=== PATIENT | male | born 1970 | race Caucasian/White ===

== ENCOUNTER → 2017-08-08 | Outpatient (CLI) | payer BC ==
[~2017-08-08] MED LIST: IBUP-103 PO
[2017-08-08 12:25] LABS: BASO % 0.5 %; BASO ABS # 0.03 K/uL (0-0.2); COMPLETE YES; EOS % 3.6 %; HEMATOCRIT 44.7 % (42-52); IG% 0.2 %; LYMPH % 28.9 %; LYMPH ABS # 1.76 K/uL (1.2-3.4); MEAN CELL VOLUME 92.9 fL (80-100); MEAN CORPUSCULAR HEMOGLOBIN 32.2 pg (25-34); MEAN CORPUSCULAR HGB CONC 34.7 g/dl (32-36); MEAN PLATELET VOLUME 10.7 fL (7.4-10.4); MONO % 8.2 %; NEUT % 58.6 %; PLATELET COUNT 176 K/uL (130-400); RED BLOOD COUNT 4.81 M/uL (4.7-6.1)
[2017-08-08 12:54] LABS: ESTIMATED AVERAGE GLUCOSE 120 mg/dl; HA1C FLAG Normal (Normal)
[2017-08-08 13:11] LABS: LYME DISEASE AB IGG NEG (NEG); LYME DISEASE AB IGM NEG (NEG)
[2017-08-08 13:37] LABS: ALT/SGPT 30 U/L (12-78); AST/SGOT 17 U/L (15-37); BLOOD UREA NITROGEN 13 mg/dl (7-18); BUN/CREATININE RATIO 15.4 (10-20); CALCIUM 8.7 mg/dl (8.5-10.1); CARBON DIOXIDE 25 mmol/L (21-32); CHLORIDE 108 mmol/L (98-107); CREATININE 0.86 mg/dl (0.60-1.40); GLUCOSE 94 mg/dl (70-99); SODIUM 138 mmol/L (136-145)
[2017-08-08 13:39] LABS: ALKALINE PHOSPHATASE 93 U/L (45-117); CHOLESTEROL 196 mg/dl (0-200); CHOLESTEROL/HDL RATIO 4.4; HDL CHOLESTEROL 45 mg/dl; LDL CHOLESTEROL CALCULATED 128 mg/dl; RHEUMATOID FACTOR < 10.0 U/mL (0-15); TRIGLYCERIDES 113 mg/dl (0-150); VERY LOW DENSITY LIPOPROT CALC 23 mg/dl
[2017-08-08 13:50] LABS: C-REACTIVE PROTEIN < 0.29 mg/dl (0-0.29); FERRITIN 120.7 ng/ml (8.0-388.0); MAGNESIUM 2.4 mg/dl (1.8-2.4); THYROID STIMULATING HORMONE 0.934 uIu/ml (0.300-4.500); URIC ACID 5.6 mg/dl (2.6-7.2)
[2017-08-08 14:16] LABS: CREATININE RANDOM URINE 81.9 mg/dl
== END | disposition home or self-care (01) ==
LOC: C.LABPBG 09:01
PROVIDERS: ATTEND Nurse Practitioner Family
DX: Z13.220 Encounter for screening for lipoid disorders (principal); M85.80 Other specified disorders of bone density and structure, unspecified site; Z13.1 Encounter for screening for diabetes mellitus

== ENCOUNTER 2019-07-19 20:46 | Inpatient (IN) ==
--- NOTE | 2019-07-19 21:30 | XRay Report ---
XR chest 1V portable HISTORY: Atypical chest pain, cough COMPARISON: Chest 08/12/2014. FINDINGS: The lungs are clear. Cardiac silhouette is normal in size. No pleural effusions. No pneumot horax. IMPRESSION: No acute process. Electronically signed by: Freddy Alvarez M.D. 07/19/2019 9:29 PM
--- NOTE | 2019-07-19 21:30 | XRay Report ---
XR knee LT 3V CLINICAL HISTORY: left knee swelling COMPARISON STUDY: Left knee 08/12/2014. FINDINGS: There is a left total knee arthroplasty. The hardware is intact. No abnormal periprosthetic lucency. No fracture or dislocation. Small left knee effusion. IMPRESSION: 1. Small left knee effusion. 2. No fractures. 3. Left total knee arthroplasty. The hardware appears intact. Electronically signed by: Freddy Alvarez M.D. 07/19/2019 9:28 PM
[2019-07-19 21:37] LABS: Basophils # (auto) 0.02 K/uL (0-0.2); Basophils % (auto) 0.3 %; Eosinophils # (auto) 0.26 K/uL (0-0.5); Eosinophils % (auto) 3.9 %; Hematocrit (blood only) 39.8 % (42-52); Hemoglobin 13.7 g/dL (14.0-18.0); Immature Granulocytes # (auto) 0.01 K/uL (0.00-0.02); Immature Granulocytes % (auto) 0.1 %; Lymphocytes # (auto) 1.71 K/uL (1.2-3.4); Lymphocytes % (auto) 25.4 %; Mean Corpuscular Hgb Conc 34.4 g/dL (32-36); Monocytes # (auto) 1.09 K/uL (0.11-0.59); Monocytes % (auto) 16.2 %; Neutrophils # (auto) 3.65 K/uL (1.4-6.5); Neutrophils % (auto) 54.1 %; Platelet Count 125 K/uL (130-400); RDW Coefficient of Variation 13.2 % (11.5-14.5); Red Blood Count 4.28 M/uL (4.7-6.1); White Blood Count 6.74 K/uL (4.8-10.8)
[2019-07-19 21:52] LABS: Partial Thromboplastin Ratio 0.9; Partial Thromboplastin Time 25.5 Seconds (21.0-31.0); Prothrombin Time 9.9 Seconds (9.0-12.0)
[2019-07-19 21:55] LABS: Alanine Aminotransferase 37 U/L (12-78); Aspartate Aminotransferase 24 U/L (15-37); BUN Creatinine Ratio 17.6 (10-20); Blood Urea Nitrogen 16 mg/dl (7-18); Calcium 8.8 mg/dl (8.5-10.1); Carbon Dioxide 24 mmol/L (21-32); Chloride 106 mmol/L (98-107); Creatinine Clr Calc Pharmacy 123.6 ml/min; Est GFR (African American) 116.1; Est GFR (Non-African American) 100.2; Glucose 91 mg/dl (70-99); Potassium 3.5 mmol/L (3.5-5.1); Sodium 139 mmol/L (136-145)
[2019-07-19 21:58] LABS: Albumin Globulin Ratio 1.1 (0.9-2); Alkaline Phosphatase 89 U/L (45-117); Bilirubin,Total 0.3 mg/dl (0.2-1); Globulin 3.6 gm/dl (2.5-4.0); Total Protein 7.6 gm/dl (6.4-8.2)
--- NOTE | 2019-07-19 22:36 | Ultrasound Report ---
LEFT LOWER EXTREMITY VENOUS DOPPLER HISTORY: Left leg swelling. COMPARISON STUDY: Venous Doppler 08/12/2014. FINDINGS: Occlusive DVT within the mid to distal superficial femoral vein and popliteal vein. There i s also thrombus in one of 2 posterior tibial veins and peroneal veins. The left common femoral vein i s patent. The left anterior tibial veins are also patent. IMPRESSION: Positive DVT within the left lower extremity as described above. Electronically signed by: Freddy Alvarez M.D. 07/19/2019 10:35 PM
[2019-07-19] MEDS ORDERED: OPTIRAY 320 125ml IV PRN (23:10)
[2019-07-19] MEDS ORDERED: HEPARIN SOD 5,000 UNIT/0.5 ML VIAL ONE (23:46)
[2019-07-19] MEDS: HEPARIN SODIUM/DEXTROSE 25,000 UNITS/500 ML BAG IV SCH (23:47)
[2019-07-20 00:30] LABS: Troponin I < 0.015 ng/ml (0-0.045)
--- NOTE | 2019-07-20 00:30 | Emergency Department Note ---
Entered by Nithya Medina acting as a scribe for Greg Warren MD ED Provider Note CHIEF COMPLAINT: left knee injury HISTORY OF PRESENT ILLNESS: The patient is a 48 year old male who presents to the Emergency Room with complaints of left knee pain and swelling in his left leg beginning nine hours ago. The patient states he was working this afternoon when he heard a pop in his left knee. The patient reports a history of a total left knee replacement 5 to 6 years ago. He notes blood clots and leg swelling after the surgery. He denies any blood thinners. The patient also states he was in a car for two hours two days ago traveling to [place]. The patient also reports flu-like symptoms, coughing, and diarrhea beginning yesterday. He notes chest pain and lightheadedness. He states he has been taking Robitussin for his cough. The patient reports a history of sleep apnea. Pt denies LOC, headache, fevers, chills, diaphoresis, visual changes, neck pain, breathing difficulties, nausea, vomiting, abdominal pain, back pain, melena, hematochezia, urinary symptoms, numbness, weakness, lymphadenopathy, rash, or other complaints. REVIEW OF SYSTEMS: See HPI for pertinent positives and negatives. A total of ten systems were reviewed and were otherwise negative. PMHx/PSHx: total knee arthroplasty, sleep apnea, hyperlipidemia SOCIAL HISTORY: Patient lives at home. PHYSICAL EXAM: GENERAL: Awake, alert, well-appearing, in no distress HENT: Normocephalic, atraumatic. Oropharynx unremarkable. EYES: PERRL. Normal conjunctiva. Sclera non-icteric. NECK: Inspection normal. Non-tender. Supple. No nuchal rigidity. FROM. No masses. RESPIRATORY: Clear to auscultation. No wheezes. No rales. Normal respiratory effort. CARDIAC: Normal rate. Normal rhythm. No murmurs. No rubs. Extremities warm and well perfused. Pulses equal. No JVD. GI: Soft, non-distended. No tenderness to palpation. No rebound or guarding. No masses. RECTAL: Deferred. MUSCULOSKELETAL: Atraumatic. Chest examination reveals no tenderness. The back is symmetrical on inspection without obvious abnormality. There is no CVA tenderness to palpation. No joint edema. LOWER EXTREMITIES: Left leg larger in size than right leg. Mild posterior thigh tenderness. Negative Homans' sign. No discoloration. NEURO: Normal sensorium. No sensory or motor deficits noted. SKIN: No rash or jaundice noted. EMERGENCY DEPARTMENT COURSE: 2100: Past medical records reviewed. The patient was evaluated in room D05, and a complete history and physical examination were performed. 2305: Upon reevaluation, the patient was resting comfortably. I updated the patient on findings and results. Patient was taken for a CT. 2345: Upon reevaluation, I discussed findings and results with the patient. He verbalized agreement of the treatment plan. I spoke with Dr. Alva of the [facility] Hospitalist Service. The patient will be evaluated for further management and care. MEDICAL DECISION MAKING: A3 Triage Nursing notes reviewed and agree them. Additional history obtained from the family. The patient's history was concerning for swelling and pain in the leg. Differential diagnosis: Etiologies such as DVT, joint effusion, infection, trauma, muscular, lymphedema, idiopathic, CHF, as well as others were entertained.. Physical examination: The physical examination revealed no signs of infection. Neurovascularly intact. ER treatment provided: Monitoring IV heparin on reassessment the patient felt better. Diagnostics interpreted by me: The labs revealed an unremarkable CBC and chemistry panel. Coags negative. Imaging studies: Ultrasound imaging of the left leg reveals an occlusive DVT. CT PE study was performed and showed bilateral pulmonary emboli. The patient has bilateral pulmonary emboli. He has an occlusive DVT. He was started on IV heparin. He will need to be admitted to the hospital for further management. Consultation: A consultation was placed with the hospitalist. The case was discussed and diagnostics were reviewed. The patient was evaluated in the ER for further treatment. IMPRESSION: Bilateral pulmonary embolism, occlusive left lower extremity DVT CRITICAL CARE: I have personally spent 30 minutes of critical care time in the direct management of this patient. This includes bedside care, interpretation of diagnostic studies, and testing, discussion with consultants, patient, and family members, and other required patient management activities. This 30 minutes is in excess of all separately billable procedures. PLAN: Further evaluation by hospitalist. The scribe's documentation has been prepared under my direction and personally reviewed by me in its entirety. I confirm that the note above accurately reflects all work, treatment, procedures, and medical decision making performed by me. Impression & Plan Bilateral pulmonary embolism, Deep vein thrombosis (DVT) of left lower extremity Past Med/Surg History Family History Mother No problems noted. 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 Feels Safe at Home: Yes Smoking Status: Current every day smoker Tobacco Type: cigarettes ; Age Started Using Tobacco: 35 ; packs per day: 0.5 ; Hx Alcohol Use: Yes Alcohol Intake Frequency: Rarely Hx Substance Use: No Childhood Exposure to Second-Hand Smoke: Yes Dental Care, Regularly: No Physical Activity Frequency: Does not Exercise Seatbelt Use: always Sunscreen Use: Yes Results & Data Vital Signs Vital Signs - 24 hr 07/19/19 20:47 07/19/19 22:46 07/19/19 23:17 Temperature 36.8 C Temperature Source Oral Sepsis Recent Fever Within 48 Hours No Sepsis Action Taken by Nursing No Action Required Pulse Rate 76 Pulse Rate [Left Finger] 69 66 Pulse Rhythm [Left Finger] Pulse Strength [Left Finger] Respiratory Rate 20 18 18 Respiratory Effort / Characteristics Non-Labored Spontaneous Respiratory Depth Normal Blood Pressure 173/88 H Blood Pressure [Right Arm] 121/64 132/61 Blood Pressure Mean 116 Blood Pressure Mean [Right Arm] 83 84 Blood Pressure Position [Right Arm] Sitting Sitting Pulse Oximetry 96 94 96 Oxygen Delivery Method Room Air Room Air Room Air 07/20/19 00:10 Temperature Temperature Source Sepsis Recent Fever Within 48 Hours Sepsis Action Taken by Nursing Pulse Rate Pulse Rate [Left Finger] 65 Pulse Rhythm [Left Finger] Regular Pulse Strength [Left Finger] Normal Respiratory Rate 16 Respiratory Effort / Characteristics Non-Labored Spontaneous Respiratory Depth Normal Blood Pressure Blood Pressure [Right Arm] 132/61 Blood Pressure Mean Blood Pressure Mean [Right Arm] 84 Blood Pressure Position [Right Arm] Pulse Oximetry 96 Oxygen Delivery Method Room Air Home Medications Current Medication List: was personally reviewed by me Laboratory Data Attestation: I reviewed the patient's lab results. Result diagrams: 07/19/19 21:25 07/19/19 21:25 Lab Results 07/19/19 07/19/19 07/19/19 Range/Units 21:25 21:25 21:25 WBC 6.74 (4.8-10.8) K/uL RBC 4.28 L (4.7-6.1) M/uL Hgb 13.7 L (14.0-18.0) g/dL Hct 39.8 L (42-52) % MCV 93.0 (80-100) fL MCH 32.0 (25-34) pg MCHC 34.4 (32-36) g/dL RDW Std Deviation 45.0 (36.4-46.3) fL RDW Coeff of Ellyn 13.2 (11.5-14.5) % Plt Count 125 L (130-400) K/uL MPV 10.0 (7.4-10.4) fL Immature Gran % (Auto) 0.1 % Neut % (Auto) 54.1 % Lymph % (Auto) 25.4 % Miner % (Auto) 16.2 % Eos % (Auto) 3.9 % Baso % (Auto) 0.3 % Immature Gran # (Auto) 0.01 (0.00-0.02) K/uL Neut # (Auto) 3.65 (1.4-6.5) K/uL Lymph # (Auto) 1.71 (1.2-3.4) K/uL Miner # (Auto) 1.09 H (0.11-0.59) K/uL Eos # (Auto) 0.26 (0-0.5) K/uL Baso # (Auto) 0.02 (0-0.2) K/uL PT 9.9 (9.0-12.0) Seconds INR 1.0 (0.9-1.1) APTT 25.5 (21.0-31.0) Seconds PTT Ratio 0.9 Sodium 139 (136-145) mmol/L Potassium 3.5 (3.5-5.1) mmol/L Chloride 106 (98-107) mmol/L Carbon Dioxide 24 (21-32) mmol/L Anion Gap 9.0 (3-11) BUN 16 (7-18) mg/dl Creatinine 0.88 (0.6-1.4) mg/dl Est Cr Clr Drug Dosing 123.6 ml/min Est GFR ( Amer) 116.1 Est GFR (Non-Af Amer) 100.2 BUN/Creatinine Ratio 17.6 (10-20) Glucose 91 (70-99) mg/dl Calcium 8.8 (8.5-10.1) mg/dl Total Bilirubin 0.3 (0.2-1) mg/dl AST 24 (15-37) U/L ALT 37 (12-78) U/L Alkaline Phosphatase 89 (45-117) U/L Total Protein 7.6 (6.4-8.2) gm/dl Albumin 4.0 (3.4-5.0) gm/dl Globulin 3.6 (2.5-4.0) gm/dl Albumin/Globulin Ratio 1.1 (0.9-2) Administered Medications Heparin Sodium/Dextrose (Heparin Sodium/Dextrose) 25,000 units in 500 mls @ 0.02 mls/hr IV .Q24H [facility]; Protocol Stop: 08/18/19 23:44 Last Admin: 07/19/19 23:47 Dose: 1,550 units/hr, 31 mls/hr Documented by: [id number] Cosigned by: [id number] Ioversol (Optiray 320 125ml) 119 ml IV ONCE PRN PRN Reason: Interaction Checking Stop: 07/23/19 23:09 Last Admin: 07/19/19 23:10 Dose: 119 ml Documented by: [id number] Discontinued Medications Heparin Sodium (Porcine) (Heparin Sodium (Porcine)) Confirm Administered Dose 5,000 units .ROUTE .K-MED ONE Stop: 07/19/19 23:47 Last Admin: 07/19/19 23:47 Dose: 5,000 units Documented by: [id number] Cosigned by: [id number] Heparin Sodium/Dextrose () 1 ea N/A NOW STA; Protocol Stop: 07/19/19 23:43 Last Admin: 07/19/19 23:48 Dose: 1 ea Documented by: [id number] Imaging Data Radiologist's Impression: Radiology results as stated below per my review and the radiologist's interpretation: LEFT LOWER EXTREMITY VENOUS DOPPLER HISTORY: Left leg swelling. COMPARISON STUDY: Venous Doppler 08/12/2014. FINDINGS: Occlusive DVT within the mid to distal superficial femoral vein and popliteal vein. There is also thrombus in one of 2 posterior tibial veins and peroneal veins. The left common femoral vein is patent. The left anterior tibial veins are also patent. IMPRESSION: Positive DVT within the left lower extremity as described above. Electronically signed by: Freddy Alvarez M.D. 07/19/2019 10:35 PM XR knee LT 3V CLINICAL HISTORY: left knee swelling COMPARISON STUDY: Left knee 08/12/2014. FINDINGS: There is a left total knee arthroplasty. The hardware is intact. No abnormal periprosthetic lucency. No fracture or dislocation. Small left knee effusion. IMPRESSION: 1. Small left knee effusion. 2. No fractures. 3. Left total knee arthroplasty. The hardware appears intact. Electronically signed by: Freddy Alvarez M.D. 07/19/2019 9:28 PM XR chest 1V portable HISTORY: Atypical chest pain, cough COMPARISON: Chest 08/12/2014. FINDINGS: The lungs are clear. Cardiac silhouette is normal in size. No pleural effusions. No pneumothorax. IMPRESSION: No acute process. Electronically signed by: Freddy Alvarez M.D. 07/19/2019 9:29 PM [facility]: CT angio chest PE protocol Urgent: bilateral pulmonary emboli Blood Pressure Blood Pressure Findings: Elevated blood pressure Blood Pressure Disposition: further management by hospitalist Discharge Plan Visit Data Chief Complaint: Knee Injury/Pain Stated Complaint: L KNEE POPPED; HOT TO TOUCH ED Provider: Greg Warren Discharge Problem: Bilateral pulmonary embolism, Deep vein thrombosis (DVT) of left lower extr emity Patient Disposition: Being Evaluated by Hospitalist Forms Stand Alone Forms: My [facility] Prescriptions Prescriptions: No Action atorvastatin 10 mg tablet 10 mg PO QPM Qty: 90 RF: 0 diclofenac sodium 75 mg tablet,delayed release (DR/EC) 75 mg PO BID Qty: 60 RF: 0 cetirizine 10 mg tablet 10 mg PO DAILY Qty: 90 RF: 0 fluticasone propionate 50 mcg/actuation spray,suspension 2 sprays intranasal DAILY Qty: 9.9 RF: 3 ergocalciferol (vitamin D2) 50,000 unit capsule 50,000 unit PO WK RF: 0 Referrals Referrals: Corine Moss MD [Primary Care Provider] - Discharge Problem: Deep vein thrombosis (DVT) of left lower extremity Qualifiers: Affected thrombotic vein of extremity: unspecified vein of extremity Chronicity: unspecified Qualified Code(s): I82.402 - Acute embolism and thrombosis of unspecified deep veins of left lower extremity The scribe's documentation has been prepared under my direction and personally reviewed by me in its entirety. I confirm that the note above accurately reflects all work, treatment, procedures, and medical decision making performed by me.
--- NOTE | 2019-07-20 00:51 | History & Physical Report ---
Date of Service July 20, 2019 Assessment & Plan (1) Bilateral pulmonary embolism: 48-year-old male with history of provoked DVT (2013, completed 3 months anticoagulation), here with recurrent DVT of the left lower extremity and bilateral pulmonary emboli. Pt's father had h/o clots. 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 Tobacco abuse. Assessment: Small bilateral pulmonary emboli, recurrent DVT of the lower extremity. -Hemodynamically stable, not hypoxic Plan: -Admit to med telemetry -Continue heparin drip with plan to begin oral medication in a.m., pending case management review of DOAC vs warfarin --given nature of recurrence, did discuss patient will need lifelong anticoagulation. -Home NSAIDs discontinued, will need education regarding drug interactions. Tobacco use -Cessation discussed, patient declines NicoDerm patch at this time. FEN/GI: HH diet DVT ppx: on heparin drip for PE/DVT CODE STATUS: FULL as d/w pt and DISPO: med/tele Other ongoing medical problems: -Hyperlipidemia: Continue atorvastatin - on review of records, is due for outpatient dobutamine stress echo, recommend pt complete this, non urgent basis. -FABY: CPAP ordered -Allergies: Continue cetirizine and fluticasone -Obesity: weight management discussed. (2) Hyperlipidemia: (3) Obstructive sleep apnea syndrome: (4) Smokes 1/2 pack per day: (5) Recurrent deep vein thrombosis (DVT): (6) Family history of DVT: History of Present Illness Chief Complaint: Left lower extremity swelling, cough Primary Care Provider: Corine Moss MD This is a 48-year-old male with history of provoked DVT in 2013 who presents to the ED with knee pain, left lower extremity swelling and redness, cough. Patient denies hemoptysis, syncope or presyncope. Endorses URI symptoms for the past several days including fevers and chills and loose stools. Left lower extremity swelling with acute onset over the last day. Patient uses tobacco daily including chewing tobacco as well as 5 to 6 cigarettes/day. 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 Has also been traveling back and forth between [place] and here to visit family. Family history is positive in his father for clots. Had left knee arthroplasty in 2013 and subsequent DVT in that extremity. Has never had a hypercoagulable work-up. is with him here today. ED course: Heparin drip begun. PMH -h/o DVT, provoked status post knee arthroplasty in 2013 -FABY, on CPAP -Tobacco abuse -Family history of clots -Hyperlipidemia PSH -knee arthroplasty 2013 SH Lives with spouse and two kids. 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 Smokes 1/2 PPD and chews tobacco. Occasional ETOH. No drugs. Allergies Allergy/AdvReac Type Severity Reaction Status Date / Time pollen extracts Allergy Intermediate ITCHY Verified 07/19/19 22:59 EYES, SNEEZING, CONGESTION Home Medications Home Medications Medication Instructions Recorded Confirmed Type cetirizine 10 mg tablet 10 mg PO DAILY #90 tab 06/05/19 07/19/19 Rx diclofenac sodium 75 mg 75 mg PO BID #60 tab 06/05/19 07/19/19 Rx tablet,delayed release fluticasone propionate 50 2 sprays INTRANASAL DAILY #9.9 gm 06/05/19 07/19/19 Rx mcg/actuation nasal spray,suspension atorvastatin 10 mg tablet 10 mg PO QPM #90 tab 06/09/19 07/19/19 Rx ergocalciferol (vitamin D2) 50,000 unit PO WK 07/19/19 07/19/19 History Past Med/Surg History Medical History Family history of DVT (Chronic) Recurrent deep vein thrombosis (DVT) (Acute) Hyperlipidemia (Chronic) Lumbar back pain (Chronic) Obstructive sleep apnea syndrome (Chronic) Smokes 1/2 pack per day (Chronic) Vitamin D deficiency (Chronic) Surgical History History of total knee arthroplasty (Resolved) History of knee surgery Family History Mother No problems noted. 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 Other Information That Helps Us Care for You: No Feels Safe at Home: Yes Safety Concerns: Feels Safe At This Time Smoking Status: Current every day smoker Tobacco Type: cigarettes and smokeless tobacco ; Age Started Using Tobacco: 35 ; packs per day: 0.5 ; Do You Dip or Chew Tobacco: Yes ; Second Hand Exposure: Yes ; Tobacco Cessation Education Requested by Patient: No Hx Alcohol Use: Yes Alcohol type: beer Alcohol Intake Frequency: Rarely Hx Substance Use: No Childhood Exposure to Second-Hand Smoke: Yes Dental Care, Regularly: No Physical Activity Frequency: Does not Exercise Seatbelt Use: always Sunscreen Use: Yes Review of Systems Review of Systems: All systems reviewed & are unremarkable except as noted in HPI & below (Endorses cough but denies hemoptysis. Endorses URI symptoms in the last few days including fevers chills and loose stools. Endorses left lower extremity swelling and pain and redness.) Physical Exam Physical Exam: Vitals noted and within normal limits -afebrile, normotensive, not tachycardic, on room air GENERAL: Awake, alert to person, place, and time, nontoxic-appearing, in no distress. HENT: Normocephalic, atraumatic. Mucus membranes appear moist. EYES: Normal conjunctiva. Sclera non-icteric. EOMI. NECK: Supple. Full range of motion. No JVD. RESPIRATORY: Clear to auscultation. Normal work of breathing. CARDIAC: Regular rate, normal rhythm. Extremities warm and well perfused ABDOMEN: Soft, non-distended. No tenderness to palpation in all four quadrants. No rebound or guarding. No masses. Bowel sounds are normal. LOWER EXTREMITIES: Inspection of calves reveal left lower extremity larger than right, associated with rubor and calor, positive Homans on the left. NEURO: No gross focal motor deficits noted. Sensation in tact. CN II-XII grossly in tact. . SKIN: Rash not present. No jaundice noted. PSYCH: Appropriate mood and affect. Cooperative. is at the bedside Exam as done by Adrienne Ellis MD, Returned Telephone Equipment Appraiser. Results & Data Vital Signs (Past 12 Hours) Vital Signs Temp Pulse Pulse Resp BP BP Pulse Ox 07/20/19 00:10 65 16 132/61 96 07/19/19 23:17 66 18 132/61 96 07/19/19 22:46 69 18 121/64 94 07/19/19 20:47 36.8 C 76 20 173/88 H 96 Laboratory Results 10/06/19 10/06/19 10/06/19 Range/Units 21:25 21:25 21:25 WBC 6.74 (4.8-10.8) K/uL RBC 4.28 L (4.7-6.1) M/uL Hgb 13.7 L (14.0-18.0) g/dL Hct 39.8 L (42-52) % MCV 93.0 (80-100) fL MCH 32.0 (25-34) pg MCHC 34.4 (32-36) g/dL RDW Std Deviation 45.0 (36.4-46.3) fL RDW Coeff of Ellyn 13.2 (11.5-14.5) % Plt Count 125 L (130-400) K/uL MPV 10.0 (7.4-10.4) fL Immature Gran % (Auto) 0.1 % Neut % (Auto) 54.1 % Lymph % (Auto) 25.4 % Garrard % (Auto) 16.2 % Eos % (Auto) 3.9 % Baso % (Auto) 0.3 % Immature Gran # (Auto) 0.01 (0.00-0.02) K/uL Neut # (Auto) 3.65 (1.4-6.5) K/uL Lymph # (Auto) 1.71 (1.2-3.4) K/uL Garrard # (Auto) 1.09 H (0.11-0.59) K/uL Eos # (Auto) 0.26 (0-0.5) K/uL Baso # (Auto) 0.02 (0-0.2) K/uL PT 9.9 (9.0-12.0) Seconds INR 1.0 (0.9-1.1) APTT 25.5 (21.0-31.0) Seconds PTT Ratio 0.9 Sodium 139 (136-145) mmol/L Potassium 3.5 (3.5-5.1) mmol/L Chloride 106 (98-107) mmol/L Carbon Dioxide 24 (21-32) mmol/L Anion Gap 9.0 (3-11) BUN 16 (7-18) mg/dl Creatinine 0.88 (0.6-1.4) mg/dl Est Cr Clr Drug Dosing 123.6 ml/min Est GFR ( Amer) 116.1 Est GFR (Non-Af Amer) 100.2 BUN/Creatinine Ratio 17.6 (10-20) Glucose 91 (70-99) mg/dl Calcium 8.8 (8.5-10.1) mg/dl Total Bilirubin 0.3 (0.2-1) mg/dl AST 24 (15-37) U/L ALT 37 (12-78) U/L Alkaline Phosphatase 89 (45-117) U/L Troponin I < 0.015 (0-0.045) ng/ml Total Protein 7.6 (6.4-8.2) gm/dl Albumin 4.0 (3.4-5.0) gm/dl Globulin 3.6 (2.5-4.0) gm/dl Albumin/Globulin Ratio 1.1 (0.9-2) Supervising Physician Co-Signing Physician Notes Attending addendum: I have physically seen this patient, have supervised the medical residents activities, and agree with the H&P unless as otherwise noted. Assessment and Plan: Bilateral pulmonary emboli/recurrent left lower extremity DVT- Risk factors include father with family history of DVT, and profession as a truck body builder. Placed on IV heparin for now. Longer term anticoagulation will be further discussed in a.m. Hypercoagulable panel ordered, however, heparin had already been begun in the ED. Tobacco use disorder- Encouraged cessation. Remainder of orders and notations as noted. PG Care Time/CCT Total # of Minutes Spent Total Time Spent with Patient: Total time spent is greater than 50% in coor dination of care (as documented) at patient's floor/unit and/or counseling patient: Resident Activity Tracking Resident Involvement: Resident Care Provided Care Provided: Adult Hospital Medicine
[2019-07-20] MEDS ORDERED: POLYETHYLENE (MIRALAX) 17 GM PACK PO PRN (01:03)
[2019-07-20] MEDS ORDERED: ALUMINUM/MAGNESIUM SUSP 30 ML UDC PO PRN (01:03)
[2019-07-20] MEDS ORDERED: ONDANSETRON INJ 2 MG/ML 2 ML VIAL IV PRN (01:03)
[2019-07-20] MEDS ORDERED: ACETAMINOPHEN 325 MG TAB PO PRN (01:03)
[2019-07-20] MEDS ORDERED: MAGNESIUM HYDROXIDE SUSP 30 ML UDC PO PRN (01:03)
[2019-07-20] MEDS ORDERED: ZOLPIDEM TARTRATE 5 MG TAB PO PRN (01:03)
[2019-07-20 06:08] LABS: Basophils # (auto) 0.03 K/uL (0-0.2); Basophils % (auto) 0.5 %; Eosinophils # (auto) 0.33 K/uL (0-0.5); Eosinophils % (auto) 5.7 %; Hematocrit (blood only) 40.4 % (42-52); Hemoglobin 13.8 g/dL (14.0-18.0); Immature Granulocytes # (auto) 0.01 K/uL (0.00-0.02); Immature Granulocytes % (auto) 0.2 %; Lymphocytes # (auto) 2.11 K/uL (1.2-3.4); Lymphocytes % (auto) 36.2 %; Mean Corpuscular Hemoglobin 31.9 pg (25-34); Mean Corpuscular Hgb Conc 34.2 g/dL (32-36); Mean Corpuscular Volume 93.3 fL (80-100); Mean Platelet Volume 9.9 fL (7.4-10.4); Monocytes # (auto) 0.75 K/uL (0.11-0.59); Monocytes % (auto) 12.9 %; Neutrophils % (auto) 44.5 %; Platelet Count 124 K/uL (130-400); RDW Coefficient of Variation 13.1 % (11.5-14.5); Red Blood Count 4.33 M/uL (4.7-6.1); White Blood Count 5.83 K/uL (4.8-10.8)
[2019-07-20 06:23] LABS: Partial Thromboplastin Ratio 1.5; Prothrombin Time 10.3 Seconds (9.0-12.0)
--- NOTE | 2019-07-20 06:38 | CT Scan Report ---
CT ANGIOGRAM OF THE CHEST CLINICAL HISTORY: Cough, shortness of breath. Leg swelling. Suspected pulmonary embolism. ATYPICAL CH EST PAIN COMPARISON STUDY: 08/12/2014 TECHNIQUE: Following the IV administration of 119 mL of [id number]-320, CT angiogram of the thorax was p erformed from the thoracic inlet to the lung bases utilizing the pulmonary embolus protocol. Images a re reviewed in the axial, sagittal, and coronal planes. IV contrast was administered without complica tion. MIP imaging was performed. A dose lowering technique was utilized adhering to the principles o f ALARA. CT DOSE: 947.71 mGy.cm FINDINGS: No pathologically enlarged axillary mediastinal or hilar lymph nodes were visualized. There was no evidence of thoracic aortic dilatation. There are small bilateral pulmonary artery filling defects indicative of bilateral pulmonary embolism . There are no findings to indicate right ventricular strain. No pleural effusions are visualized There are mild dependent atelectatic changes. There is no lobar consolidation. IMPRESSION: 1. Acute bilateral lower lobe pulmonary emboli. Electronically signed by: Burke Shabazz M.D. 07/20/2019 6:37 AM
[2019-07-20 06:43] LABS: BUN Creatinine Ratio 15.5 (10-20); Calcium 8.2 mg/dl (8.5-10.1); Creatinine Clr Calc Pharmacy 121.1 ml/min; Est GFR (African American) 115.6; Est GFR (Non-African American) 99.7; Potassium 3.5 mmol/L (3.5-5.1)
[2019-07-20] MEDS: HEPARIN SODIUM/DEXTROSE 25,000 UNITS/500 ML BAG IV SCH ×2 (07:10→15:30)
[2019-07-20] MEDS ORDERED: HEPARIN IV BOLUS 3,000 UNITS in SYRINGE 0 ML IV ONE (07:30)
[2019-07-20] MEDS: CETIRIZINE HCL 10 MG TABLET PO SCH (08:36)
[2019-07-20] MEDS: FLUTICASONE PROPIONATE NA SPR 16 GM BTL SCH (08:36)
[2019-07-20] MEDS ORDERED: INFLUENZA VIRUS QUAD VACCINE 0.5 ML SYR IM ONE (09:00)
[2019-07-20] MEDS ORDERED: INFLUENZA ADMINISTRATION CHARGE ONE (09:00)
[2019-07-20] MEDS ORDERED: RIVAROXABAN 15 MG TAB PO SCH (12:00)
[2019-07-20 13:49] LABS: Partial Thromboplastin Ratio 1.8
[2019-07-20] MEDS ORDERED: WARFARIN SOD 10 MG TAB PO ONE (16:00)
[2019-07-20] MEDS: ATORVASTATIN 10 MG TAB PO SCH (20:54)
[2019-07-21] MEDS: HEPARIN SODIUM/DEXTROSE 25,000 UNITS/500 ML BAG IV SCH ×2 (05:43→19:55)
[2019-07-21 06:31] LABS: Partial Thromboplastin Ratio 1.6; Partial Thromboplastin Time 42.2 Seconds (21.0-31.0); Prothrombin Time 10.5 Seconds (9.0-12.0)
[2019-07-21] MEDS ORDERED: HEPARIN IV BOLUS 3,000 UNITS in SYRINGE 0 ML IV ONE (07:30)
[2019-07-21] MEDS: FLUTICASONE PROPIONATE NA SPR 16 GM BTL SCH (08:04)
[2019-07-21] MEDS: CETIRIZINE HCL 10 MG TABLET PO SCH (08:04)
[2019-07-21 13:35] LABS: Partial Thromboplastin Time 54.7 Seconds (21.0-31.0)
[2019-07-21] MEDS ORDERED: WARFARIN SOD 7.5 MG TAB PO SCH (16:00)
[2019-07-21] MEDS: ATORVASTATIN 10 MG TAB PO SCH (20:23)
--- NOTE | 2019-07-21 22:48 | Hospitalist Progress Note ---
Date of Service July 21, 2019 Assessment & Plan (1) Bilateral pulmonary embolism: 48-year-old male with history of provoked DVT (2014, completed 3 months anticoagulation), here with recurrent DVT of the left lower extremity and bilateral pulmonary emboli. Pt's father had h/o clots. 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 Tobacco abuse. Assessment: Small bilateral pulmonary emboli, recurrent DVT of the lower extremity. -Hemodynamically stable, not hypoxic Plan: -Admit to med telemetry -Continue heparin drip with plan to begin oral medication in a.m., pending case management review of DOAC vs warfarin --given nature of recurrence, did discuss patient will need lifelong anticoagulation. -Home NSAIDs discontinued, will need education regarding drug interactions. Due to patient's elevated BMI, will keep patient on heparin and brigde to warfarin. Currently waiting for INR to budge. INR is currently 1.1 Tobacco use -Cessation discussed, patient declines NicoDerm patch at this time. Other ongoing medical problems: -Hyperlipidemia: Continue atorvastatin - on review of records, is due for outpatient dobutamine stress echo, recommend pt complete this, non urgent basis. -FABY: CPAP ordered -Allergies: Continue cetirizine and fluticasone -Obesity: weight management discussed. (2) Hyperlipidemia: (3) Obstructive sleep apnea syndrome: (4) Smokes 1/2 pack per day: (5) Recurrent deep vein thrombosis (DVT): Due to recurrent DVT, patient will need to be on linfelong anticoagulation. Awaiting patient to be therapuetic. (6) Family history of DVT: Subjective 57 yo male reports no new symptoms. Patient denies any nausea, vomiting, chest pain. Review of Systems Review of Systems: All systems reviewed & are unremarkable except as noted in HPI & below Physical Exam Physical Exam: GENERAL: Awake, alert to person, place, and time, nontoxic- appearing, in no distress. HENT: Normocephalic, atraumatic. Mucus membranes appear moist. EYES: Normal conjunctiva. Sclera non-icteric. EOMI. NECK: Supple. Full range of motion. No JVD. RESPIRATORY: Clear to auscultation. Normal work of breathing. CARDIAC: Regular rate, normal rhythm. Extremities warm and well perfused ABDOMEN: Soft, non-distended. No tenderness to palpation in all four quadrants. No rebound or guarding. No masses. Bowel sounds are normal. LOWER EXTREMITIES: Inspection of calves reveal left lower extremity larger than right. NEURO: No gross focal motor deficits noted. Sensation in tact. CN II-XII grossly in tact. . SKIN: Rash not present. No jaundice noted. PSYCH: Appropriate mood and affect. Cooperative. Results & Data Vital Signs (Past 12 Hours) Vital Signs Temp Pulse Pulse Resp BP Pulse Ox 07/21/19 19:58 36.9 C 87 18 135/75 94 07/21/19 16:30 59 L 07/21/19 15:44 37.0 C 64 18 119/67 93 07/21/19 11:08 36.8 C 63 17 134/78 93 PG Care Time/CCT Total # of Minutes Spent Total Time Spent with Patient: Total time spent is greater than 50% in coordination of care (as documented) at patient's floor/unit and/or counseling patient:
[2019-07-22 06:37] LABS: INR 1.1 (0.9-1.1); Partial Thromboplastin Ratio 1.9; Prothrombin Time 10.9 Seconds (9.0-12.0)
[2019-07-22 06:55] LABS: Partial Thromboplastin Time 51.4 Seconds (21.0-31.0)
[2019-07-22] MEDS: FLUTICASONE PROPIONATE NA SPR 16 GM BTL SCH (08:43)
[2019-07-22] MEDS: CETIRIZINE HCL 10 MG TABLET PO SCH (08:43)
[2019-07-22] MEDS: HEPARIN SODIUM/DEXTROSE 25,000 UNITS/500 ML BAG IV SCH ×2 (08:44→22:23)
[2019-07-22] MEDS ORDERED: WARFARIN SOD 10 MG TAB PO ONE (12:00)
[2019-07-22] MEDS: ATORVASTATIN 10 MG TAB PO SCH (19:47)
--- NOTE | 2019-07-22 22:46 | Hospitalist Progress Note ---
Date of Service July 22, 2019 Assessment & Plan (1) Bilateral pulmonary embolism: 48-year-old male with history of provoked DVT (2013, completed 3 months anticoagulation), here with recurrent DVT of the left lower extremity and bilateral pulmonary emboli. Pt's father had h/o clots. 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 Tobacco abuse. Assessment: Small bilateral pulmonary emboli, recurrent DVT of the lower extremity. -Hemodynamically stable, not hypoxic Plan: -Admit to med telemetry -Continue heparin drip with plan to begin oral medication in a.m., ] -Home NSAIDs discontinued, will need education regarding drug interactions. Due to patient's elevated BMI, will keep patient on heparin and bridge to warfarin. Patient required 10 mg on day 1, 7.5 on day 2. INR remains low. will continue to monitor. Tobacco use -Cessation discussed, patient declines NicoDerm patch at this time. Other ongoing medical problems: -Hyperlipidemia: Continue atorvastatin - on review of records, is due for outpatient dobutamine stress echo, recommend pt complete this, non urgent basis. -FABY: CPAP ordered -Allergies: Continue cetirizine and fluticasone -Obesity: weight management discussed. (2) Hyperlipidemia: (3) Obstructive sleep apnea syndrome: (4) Smokes 1/2 pack per day: (5) Recurrent deep vein thrombosis (DVT): Due to recurrent DVT, patient will need to be on linfelong anticoagulation. Awaiting patient to be therapuetic. (6) Family history of DVT: Subjective Patient reports no new symptoms. Patient continues to have chest pain when he inhales. Patient denies any nausea, vomiting, diarrhea. Review of Systems Review of Systems: All systems reviewed & are unremarkable except as noted in HPI & below Physical Exam Physical Exam: GENERAL: Awake, alert to person, place, and time, nontoxic- appearing, in no distress. HENT: Normocephalic, atraumatic. Mucus membranes appear moist. EYES: Normal conjunctiva. Sclera non-icteric. EOMI. NECK: Supple. Full range of motion. No JVD. RESPIRATORY: Clear to auscultation. Normal work of breathing. CARDIAC: Regular rate, normal rhythm. Extremities warm and well perfused ABDOMEN: Soft, non-distended. No tenderness to palpation in all four quadrants. No rebound or guarding. No masses. Bowel sounds are normal. LOWER EXTREMITIES: Inspection of calves reveal left lower extremity larger than right. NEURO: No gross focal motor deficits noted. Sensation in tact. CN II-XII grossly intact. . SKIN: Rash not present. No jaundice noted. PSYCH: Appropriate mood and affect. Cooperative. Results & Data Vital Signs (Past 12 Hours) Vital Signs Temp Pulse Pulse Resp BP BP Pulse Ox 07/22/19 19:19 36.9 C 76 18 118/66 94 07/22/19 16:15 57 L 07/22/19 14:47 36.8 C 68 18 125/76 94 07/22/19 11:31 36.8 C 59 L 18 127/66 97 PG Care Time/CCT Total # of Minutes Spent Total Time Spent with Patient: Total time spent is greater than 50% in coordination of care (as documented) at patient's floor/unit and/or counseling patient:
[2019-07-23 04:18] LABS: INR 1.3 (0.9-1.1); Partial Thromboplastin Ratio 2.1; Prothrombin Time 13.5 Seconds (9.0-12.0)
[2019-07-23 04:36] LABS: Partial Thromboplastin Time 56.2 Seconds (21.0-31.0)
[2019-07-23] MEDS: CETIRIZINE HCL 10 MG TABLET PO SCH (08:58)
[2019-07-23] MEDS: FLUTICASONE PROPIONATE NA SPR 16 GM BTL SCH (08:58)
[2019-07-23] MEDS: HEPARIN SODIUM/DEXTROSE 25,000 UNITS/500 ML BAG IV SCH (11:56)
[2019-07-23] MEDS ORDERED: WARFARIN SOD 2.5 MG TAB PO ONE (12:30)
[2019-07-23] MEDS ORDERED: WARFARIN SOD 10 MG TAB PO ONE (12:30)
[2019-07-23] MEDS: ATORVASTATIN 10 MG TAB PO SCH (22:18)
--- NOTE | 2019-07-23 22:44 | Hospitalist Progress Note ---
Date of Service July 23, 2019 Assessment & Plan (1) Bilateral pulmonary embolism: 48-year-old male with history of provoked DVT (2013, completed 3 months anticoagulation), here with recurrent DVT of the left lower extremity and bilateral pulmonary emboli. Pt's father had h/o clots. 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 Assessment: Small bilateral pulmonary emboli, recurrent DVT of the lower extremity. -Hemodynamically stable, not hypoxic Plan: -Admit to med telemetry On heparin drip -Home NSAIDs discontinued, will need education regarding drug interactions. Due to patient's elevated BMI, will keep patient on heparin and bridge to warfarin. Patient required 10 mg on day 1, 7.5 on day 2. 10 mg on day 3, 12.5 on day 4. INR remains low at 1.3 will continue to monitor. Tobacco use -Cessation discussed, patient declines NicoDerm patch at this time. Other ongoing medical problems: -Hyperlipidemia: Continue atorvastatin - on review of records, is due for outpatient dobutamine stress echo, recommend pt complete this, non urgent basis. -FABY: CPAP ordered -Allergies: Continue cetirizine and fluticasone -Obesity: weight management discussed. (2) Hyperlipidemia: (3) Obstructive sleep apnea syndrome: (4) Smokes 1/2 pack per day: (5) Recurrent deep vein thrombosis (DVT): Due to recurrent DVT, patient will need to be on linfelong anticoagulation. Awaiting patient to be therapuetic. (6) Family history of DVT: Subjective Patient reports no new symptoms. Review of Systems Review of Systems: All systems reviewed & are unremarkable except as noted in HPI & below Physical Exam Physical Exam: GENERAL: Awake, alert to person, place, and time, nontoxic- appearing, in no distress. HENT: Normocephalic, atraumatic. Mucus membranes appear moist. EYES: Normal conjunctiva. Sclera non-icteric. EOMI. NECK: Supple. Full range of motion. No JVD. RESPIRATORY: Clear to auscultation. Normal work of breathing. CARDIAC: Regular rate, normal rhythm. Extremities warm and well perfused ABDOMEN: Soft, non-distended. No tenderness to palpation in all four quadrants. No rebound or guarding. No masses. Bowel sounds are normal. LOWER EXTREMITIES: Inspection of calves reveal left lower extremity larger than right. NEURO: No gross focal motor deficits noted. Sensation in tact. CN II-XII grossly in tact. . SKIN: Rash not present. No jaundice noted. PSYCH: Appropriate mood and affect. Cooperative. GENERAL: Awake, alert to person, place, and time, nontoxic-appearing, in no distress. HENT: Normocephalic, atraumatic. Mucus membranes appear moist. EYES: Normal conjunctiva. Sclera non-icteric. EOMI. NECK: Supple. Full range of motion. No JVD. RESPIRATORY: Clear to auscultation. Normal work of breathing. CARDIAC: Regular rate, normal rhythm. Extremities warm and well perfused ABDOMEN: Soft, non-distended. No tenderness to palpation in all four quadrants. No rebound or guarding. No masses. Bowel sounds are normal. LOWER EXTREMITIES: Inspection of calves reveal left lower extremity larger than right. NEURO: No gross focal motor deficits noted. Sensation in tact. CN II-XII grossly in tact. . SKIN: Rash not present. No jaundice noted. PSYCH: Appropriate mood and affect. Cooperative. Results & Data Vital Signs (Past 12 Hours) Vital Signs Temp Pulse Pulse Resp BP BP Pulse Ox 07/23/19 20:03 36.8 C 69 20 141/76 H 94 07/23/19 16:00 61 07/23/19 15:41 36.9 C 68 20 120/54 L 92 07/23/19 11:17 36.6 C 94 H 18 131/76 98 PG Care Time/CCT Total # of Minutes Spent Total Time Spent with Patient: Total time spent is greater than 50% in coordination of care (as documented) at patient's floor/unit and/or counseling patient:
[2019-07-24] MEDS: HEPARIN SODIUM/DEXTROSE 25,000 UNITS/500 ML BAG IV SCH (02:27)
[2019-07-24 06:18] LABS: INR 1.7 (0.9-1.1); Partial Thromboplastin Ratio 2.8; Prothrombin Time 17.2 Seconds (9.0-12.0)
[2019-07-24] MEDS: FLUTICASONE PROPIONATE NA SPR 16 GM BTL SCH (07:52)
[2019-07-24] MEDS ORDERED: LOVENOX TEACHING KIT STA (08:56)
[2019-07-24] MEDS ORDERED: ENOXAPARIN INJ 120 MG/0.8 ML SYR SQ SCH (10:00)
[2019-07-24] MEDS: CETIRIZINE HCL 10 MG TABLET PO SCH (10:21)
[2019-07-24] MEDS ORDERED: WARFARIN SOD 10 MG TAB PO ONE (10:54)
[2019-07-24] MEDS ORDERED: WARFARIN SOD 2.5 MG TAB PO ONE (10:55)
--- NOTE | 2019-08-05 07:27 | Discharge Summary ---
Date of Service July 24, 2019 Admission HPI Per Admitting Provider This is a 48-year-old male with history of provoked DVT in 2013 who presents to the ED with knee pain, left lower extremity swelling and redness, cough. Patient denies hemoptysis, syncope or presyncope. Endorses URI symptoms for the past several days including fevers and chills and loose stools. Left lower extremity swelling with acute onset over the last day. Patient uses tobacco daily including chewing tobacco as well as 5 to 6 cigarettes/day. 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 Has also been traveling back and forth between [place] and here to visit family. Family history is positive in his father for clots. Had left knee arthroplasty in 2013 and subsequent DVT in that extremity. Has never had a hypercoagulable work-up. is with him here today. ED course: Heparin drip begun. PMH -h/o DVT, provoked status post knee arthroplasty in 2013 -FABY, on CPAP -Tobacco abuse -Family history of clots -Hyperlipidemia PSH -knee arthroplasty 2013 SH Lives with spouse and two kids. 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 Smokes 1/2 PPD and chews tobacco. Occasional ETOH. No drugs. Principal Diagnosis Bilateral pulmonary embolism. Discharge Exam GENERAL: Awake, alert to person, place, and time, nontoxic-appearing, in no distress. HENT: Normocephalic, atraumatic. Mucus membranes appear moist. EYES: Normal conjunctiva. Sclera non-icteric. EOMI. NECK: Supple. Full range of motion. No JVD. RESPIRATORY: Clear to auscultation. Normal work of breathing. CARDIAC: Regular rate, normal rhythm. Extremities warm and well perfused ABDOMEN: Soft, non-distended. No tenderness to palpation in all four quadrants. No rebound or guarding. No masses. Bowel sounds are normal. LOWER EXTREMITIES: Inspection of calves reveal left lower extremity larger than right. NEURO: No gross focal motor deficits noted. Sensation in tact. CN II-XII grossly in tact. . SKIN: Rash not present. No jaundice noted. PSYCH: Appropriate mood and affect. Cooperative. Discharge Data Allergies Allergy/AdvReac Type Severity Reaction Status Date / Time pollen extracts Allergy Intermediate ITCHY Verified 07/30/19 21:46 EYES, SNEEZING, CONGESTION Consultations 07/19/19 23:59 ED Decision to Admit Stat 07/20/19 01:03 Consult Case Management - Discharge Planning Routine Ordered Studies 07/19/19 21:02 US venous doppler LE LT Stat 07/19/19 22:58 CT angio chest PE protocol Urgent Hospital Course (1) Bilateral pulmonary embolism: 48-year-old male with history of provoked DVT (2013, completed 3 months anticoagulation), here with recurrent DVT of the left lower extremity and bilateral pulmonary emboli. Pt's father had h/o clots. 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 Tobacco abuse. Assessment: Small bilateral pulmonary emboli, recurrent DVT of the lower extremity. -Hemodynamically stable, not hypoxic Plan: -Admit to med telemetry -Initially on heparin drip, plan was to use NOAC, but patient's BMI is elevaated. -Home NSAIDs discontinued, will need education regarding drug interactions. Due to patient's elevated BMI, kept patient on heparin and bridge to warfarin. Patient required 10 mg on day 1, 7.5 on day 2. 10 mg on day 3, 12.5 on day 4. INR remains low at 1.7 Patient will be discharged on warfarin and lovenox. Tobacco use -Cessation discussed, patient declines NicoDerm patch at this time. Other ongoing medical problems: -Hyperlipidemia: Continue atorvastatin - on review of records, is due for outpatient dobutamine stress echo, recommend pt complete this, non urgent basis. -FABY: CPAP ordered -Allergies: Continue cetirizine and fluticasone -Obesity: weight management discussed. (2) Hyperlipidemia: (3) Obstructive sleep apnea syndrome: (4) Smokes 1/2 pack per day: (5) Recurrent deep vein thrombosis (DVT): Due to recurrent DVT, patient will need to be on lifelong anticoagulation. (6) Family history of DVT: Total Time Total Time Spent Total Time Spent (In Minutes): 32 Total Time Includes: Examination of the Patient, Discharge Planning and Medication Reconciliation Discharge Plan Discharge Items Patient Disposition: Home - Self-Care Reason For Visit: RECURRENT DVT Discharge Diagnosis: bilateral pulmonary embolism Activity: Resume your previous activity Non-emergency contact: Primary Care Provider Call non-emergency contact if: you have any medication questions Follow-up/Referrals: [facility] [Provider Group] - 07/27/19 8:45 am (Please, follow up at [facility] on SaturdayJuly 27 at 9:00 am (arrive 8:45 am). *The clinic is located in the rear of this [facility]. You will park BEHIND the hospital in [address] and enter via [facility]. If you have any questions, call the clinic at [phone].) Corine Moss MD [Primary Care Provider] - 07/28/19 10:15 am (Please, follow up with Dr. Moss on SaturdayJuly 28 at 10:15 am. *If you need to change this appointment, call the office at [phone].) Diet: Regular Addtl Attending Provider Instructions: will recommend daily blood draws for next 5 days. Start lovenox tonight. Start coumadin tomorrow. Pending Studies at Discharge: No Stand-Alone Forms: [facility] Medications and DC Order Prescriptions: Continued atorvastatin 10 mg tablet 10 mg PO QPM Qty: 90 RF: 0 ergocalciferol (vitamin D2) 50,000 unit capsule 50,000 unit PO WK RF: 0 No Action acetaminophen [Tylenol Extra Strength] 500 mg Tablet 1,000 mg PO Q6H PRN (Reason: Pain) RF: 0 diphenhydramine HCl [Benadryl Allergy] 25 mg Tablet 25 mg PO DIRECTED PRN (Reason: Allergy Symptoms) RF: 0 warfarin 10 mg tablet 10 mg PO QPM RF: 0 diclofenac sodium 75 mg tablet,delayed release (DR/EC) 75 mg PO BID PRN (Reason: Back Pain) RF: 0 fluticasone propionate 50 mcg/actuation spray,suspension 2 sprays intranasal DAILY PRN (Reason: Allergy Symptoms) RF: 0 Discharge Orders: Discharge Order (Routine); Ordered 07/24/19 Ordered By: Nathan Persaud Admission Data Admit Date/Time: 07/20/19 00:32 Attending Provider: Nathan Persaud Admit Provider: Adrienne Ellis Primary Care Provider: Corine Moss Other Providers: Antony Alva Other Interventions: Discharge Summary Assessment (RN) Last Done: 07/24/19 14:34 DC Date/Time DO NOT enter until pt leaves facility: 07/24/19 15:11
== END 2019-07-24 15:11 | disposition home or self-care (01) | DRG 299 ==
LOC: ED 20:46 → SUATTDRO 07-20 00:32 → 2N 07-20 00:32
DX: E78.5 Hyperlipidemia, unspecified; I82.4Z2 Acute embolism and thrombosis of unspecified deep veins of left distal lower extremity; F17.200 Nicotine dependence, unspecified, uncomplicated; E66.9 Obesity, unspecified; Z96.652 Presence of left artificial knee joint; I26.99 Other pulmonary embolism without acute cor pulmonale

== ENCOUNTER 2021-09-25 17:47 | Observation (INO) ==
--- NOTE | 2021-09-25 18:41 | XRay Report ---
XR chest 2V PA/lateral HISTORY: 51 years-old Male Chest Pain . Atypical chest pain COMPARISON: CTA chest and chest radiograph 07/19/2019 TECHNIQUE: PA and lateral views of the chest FINDINGS: The cardiomediastinal and hilar silhouettes are within normal limits. No pneumothorax, pleural effusi on, airspace consolidation or overt pulmonary edema. Degenerative changes of the shoulders and spine. IMPRESSION: No acute process. ACT 112: Negative or not required by law. The above report was generated using voice recognition software. It may contain grammatical, syntax o r spelling errors. Electronically signed by: Bo Garnica M.D. 09/25/2021 6:39 PM
[2021-09-25 18:56] LABS: Influenza A virus by PCR Negative (Neg); Influenza B virus by PCR Negative (Neg); RSV by PCR Negative (Neg); SARS CoV2 RNA(COVID-19) InHosp NEGATIVE (Negative)
[2021-09-25 18:58] LABS: Basophils # (auto) 0.02 K/uL (0-0.2); Basophils % (auto) 0.4 %; Eosinophils # (auto) 0.13 K/uL (0-0.5); Eosinophils % (auto) 2.3 %; Hematocrit (blood only) 44.1 % (42-52); Hemoglobin 15.2 g/dL (14.0-18.0); Lymphocytes # (auto) 1.86 K/uL (1.2-3.4); Lymphocytes % (auto) 32.8 %; Mean Corpuscular Hemoglobin 32.6 pg (25-34); Mean Corpuscular Hgb Conc 34.5 g/dL (32-36); Mean Corpuscular Volume 94.6 fL (80-100); Mean Platelet Volume 10.1 fL (7.4-10.4); Monocytes % (auto) 17.6 %; Neutrophils # (auto) 2.66 K/uL (1.4-6.5); Neutrophils % (auto) 46.9 %; Platelet Count 158 K/uL (130-400); RDW Coefficient of Variation 13.1 % (11.5-14.5); RDW Standard Deviation 45.2 fL (36.4-46.3); Red Blood Count 4.66 M/uL (4.7-6.1); White Blood Count 5.67 K/uL (4.8-10.8)
[2021-09-25 19:10] LABS: INR 1.6 (0.9-1.1); Partial Thromboplastin Ratio 1.2; Partial Thromboplastin Time 31.7 Seconds (21.0-31.0); Prothrombin Time 15.4 Seconds (9.0-12.0)
[2021-09-25 19:16] LABS: Alanine Aminotransferase 30 (12-78); Albumin Level 3.5 gm/dl (3.4-5.0); Aspartate Aminotransferase 15 U/L (15-37); BUN Creatinine Ratio 16.1 (10-20); Blood Urea Nitrogen 15 mg/dl (7-18); Calcium 9.2 mg/dl (8.5-10.1); Carbon Dioxide 25 mmol/L (21-32); Chloride 106 mmol/L (98-107); Est GFR (African American) 106.9 ml/min; Est GFR (Non-African American) 92.2 ml/min; Glucose 101 mg/dl (70-99); Potassium 3.9 mmol/L (3.5-5.1); Sodium 137 mmol/L (136-145)
[2021-09-25 19:21] LABS: Albumin Globulin Ratio 0.8 (0.9-2); Alkaline Phosphatase 88 U/L (45-117); Bilirubin,Total 0.4 mg/dl (0.2-1); Globulin 4.2 gm/dl (2.5-4.0); Total Protein 7.7 gm/dl (6.4-8.2); Troponin I < 0.015 ng/ml (0-0.045)
[2021-09-25] MEDS ORDERED: SODIUM CHLORIDE 0.9% 1000ML 1,000 ML IV SCH (20:51)
--- NOTE | 2021-09-25 20:53 | Emergency Department Note ---
Impression & Plan Chest pain ADMIT ED Provider Note HPI: The patient is a 51-year-old male with history of DVT, on Coumadin, history of FABY, obesity, hyperlipidemia, active smoker, presents the emergency department the chief complaint of intermittent chest pain for the past 2 weeks. 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 He states this does seem to go away at rest. Patient states he does have a history of DVT and he is currently on Coumadin, he denies any shortness of breath but states he has had a cough and some sneezing recently. On arrival here to the ED the patient is hemodynamically stable, he is resting comfortably in bed and saturating well on room air on my initial assessment. ROS: -Cardio: Intermittent chest pain -Pulmonary: Cough/sneezing *10 point review systems was conducted and is otherwise negative unless stated above *Outpatient medications and allergy history reviewed PE: General: Alert, NAD HEENT: Normocephalic, atraumatic, trachea midline Eyes: Extraocular eye movement is intact, no scleral erythema Pulmonary: Clear to auscultation bilaterally, no wheezing Cardio: Regular rate and rhythm GI: Abdomen is soft, nontender : No suprapubic tenderness MSK: No evidence of trauma or malformation of the extremities, no edema Skin: No evidence of rash Neuro: Alert, no focal deficits Psychiatric: Cooperative monitoring and evaluation advisor: - An order was placed for continuous cardiac monitoring - Patient was noted to be in sinus rhythm with rate of 60 CTA CHEST: Comparison to July 19, 2018 The pulmonary arterial tree is well opacified with contrast. No pulmonary emboli are identified. The thoracic aorta is nondilated. There is no aneurysm or dissection. The heart is not enlarged. Mild coronary calcification is present. No pericardial effusion. No mediastinal or axillary lymphadenopathy or masses identified. Lungs are well-inflated. There is a small amount of dependent subsegmental atelectasis bilaterally. No focal consolidation, pneumothorax, or pleural effusion is seen. Moderate multilevel degenerative changes are seen throughout the thoracic spine. No fracture or bone lesion. Limited images of the upper abdomen appear unremarkable. Radiologist: Donald Christie MD EKG: Rate: 69 Rhythm: Normal sinus rhythm Intervals: QRS 126 ms, otherwise within normal limits ST changes: No ST elevation Time: 1834 Medical Decision Making: Patient presented to the emergency department the chief complaint of intermittent chest discomfort over the past several weeks. He states that the pain does occur with exertion, states it seems to be relieved with rest. Jony rodriguez is noted to be on Coumadin for history of DVT, his INR is subtherapeutic therefore I did obtain CT angiography of the chest that does not show any evidence of aortic dissection or pulmonary embolism. Troponin is negative x1, EKG does not show any acute ischemic changes. CT angiography does mention coronary artery calcifications. Patient does have multiple risk factors including obesity, age, family history, he is an active smoker x20 some years. His pain is typical in nature. COVID-19 testing is negative. Given the patient's risk factors and concerning story for ACS, I did discuss case with the on-call hospitalist, Dr. Christie, the patient was accepted to a telemetry bed for further management and ACS rule out. Patient was given aspirin in the ED prior to admission. He is in agreement to the above plan as is his significant other at the bedside. Patient was admitted in stable condition. * Diagnosis: Chest pain, ACS rule out * Disposition: Admission Tristan Miner DO Emergency Medicine Past Med/Surg History Medical History Bilateral pulmonary embolism Chronic head pain Deep vein thrombosis (DVT) of left lower extremity Family history of DVT Hearing deficit History of kidney stones Hyperlipidemia Lumbar back pain Morbid obesity with BMI of 45.0-49.9, adult Nausea and vomiting after administration of anesthetic agent Obstructive sleep apnea syndrome On anticoagulant therapy Recurrent deep vein thrombosis (DVT) Skull fracture Smokes 1/2 pack per day Surgical History History of appendectomy History of arthroscopy of left knee History of tooth extraction History of total knee arthroplasty History of total left knee replacement (TKR) Family History Mother Blood clot in vein Father Aortic aneurysm Myocardial infarction Family history of diabetes mellitus Blood clot in vein Other No family history of adverse response to anesthesia Denies family history of Ovarian cancer Prostate cancer Breast cancer Colorectal cancer Social History Smoking Status: Current every day smoker Age Started Using Tobacco: 35; packs per day: 0.5; Cigarettes Per Day: 10 a day; Second Hand Exposure: Yes (parents smoked); Hx Alcohol Use: Yes Alcohol type: beer, wine and hard liquor Hx Substance Use: No Preferred Language: Citizen Of [place] Communication Ability: Effective Visual Impairment: Limited Hearing Ability: Normal Animal Chiropractor Required: No Beliefs That Will Affect Care: None marital status: Current Living Situation: Spouse and Family Current Living Situation Comment: Lives with and daughter current occupational status: employed 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 Feels Safe at Home: Yes Childhood Exposure to Second-Hand Smoke: Yes Dental Care, Regularly: No Physical Activity Frequency: Does not Exercise Seatbelt Use: always Sunscreen Use: Yes Assistive Devices: CPAP and Glasses Allergies Allergies Allergy/AdvReac Type Severity Reaction Status Date / Time pollen extracts Allergy Intermediate ITCHY Verified 07/28/21 15:16 EYES, SNEEZING, CONGESTION cat dander Allergy Verified 07/28/21 15:16 dog dander Allergy Verified 07/28/21 15:16 No Known Drug Allergies Allergy Verified 07/28/21 15:16 Home Meds Home Medications Medication Instructions Recorded Confirmed acetaminophen 500 mg tablet 1,000 mg PO Q6H PRN 07/30/19 09/25/21 (Tylenol Extra Strength) warfarin 5 mg tablet See Rx Instructions PO DAILY tab 07/14/21 09/25/21 diclofenac sodium 1 % topical gel 2 g TOPICAL QID 09/25/21 09/25/21 Previous Rx's Medication Instructions Recorded atorvastatin 10 mg tablet 10 mg PO QPM #90 tab 09/07/20 diclofenac sodium 1 % topical gel 4 g TOPICAL QID #100 g 09/07/20 (Voltaren) montelukast 10 mg tablet 10 mg PO QPM #90 tab 02/15/21 (Singulair) azelastine 137 mcg (0.1 %) nasal 2 spray INTRANASAL BID #30 ml 07/10/21 spray aerosol Results & Data (ED) Vital Signs Vital Signs - 24 hr 09/25/21 18:04 09/25/21 18:07 09/25/21 20:46 Temperature 36.7 C Temperature Source Temporal Artery Scan Pulse Rate 71 68 62 Pulse Rhythm Regular Respiratory Rate 20 14 Respiratory Effort / Characteristics Non-Labored Spontaneous Respiratory Depth Normal Respiratory Pattern Regular Blood Pressure 157/90 H 162/100 H Blood Pressure Mean 112 120 Pulse Oximetry 97 97 98 Oxygen Delivery Method Room Air Room Air Sepsis Recent Fever Within 48 Hours No Sepsis New/Unexplained Change in Mental Status No Sepsis Action Taken by Nursing No Action Required Laboratory Data Result diagrams: 09/25/21 18:47 09/25/21 18:47 Lab Results 09/25/21 09/25/21 09/25/21 Range/Units 18:05 18:47 18:47 WBC 5.67 (4.8-10.8) K/uL RBC 4.66 L (4.7-6.1) M/uL Hgb 15.2 (14.0-18.0) g/dL Hct 44.1 (42-52) % MCV 94.6 (80-100) fL MCH 32.6 (25-34) pg MCHC 34.5 (32-36) g/dL RDW Std Deviation 45.2 (36.4-46.3) fL RDW Coeff of Ellyn 13.1 (11.5-14.5) % Plt Count 158 (130-400) K/uL MPV 10.1 (7.4-10.4) fL Immature Gran % (Auto) 0.0 % Neut % (Auto) 46.9 % Lymph % (Auto) 32.8 % [place] % (Auto) 17.6 % Eos % (Auto) 2.3 % Baso % (Auto) 0.4 % Neut # (Auto) 2.66 (1.4-6.5) K/uL Lymph # (Auto) 1.86 (1.2-3.4) K/uL [place] # (Auto) 1.00 H (0.11-0.59) K/uL Eos # (Auto) 0.13 (0-0.5) K/uL Baso # (Auto) 0.02 (0-0.2) K/uL Immature Gran # (Auto) 0.00 (0.00-0.02) K/uL PT 15.4 H (9.0-12.0) Seconds INR 1.6 H (0.9-1.1) APTT 31.7 H (21.0-31.0) Seconds PTT Ratio 1.2 Sodium (136-145) mmol/L Potassium (3.5-5.1) mmol/L Chloride (98-107) mmol/L Carbon Dioxide (21-32) mmol/L Anion Gap (3-11) BUN (7-18) mg/dl Creatinine (0.6-1.4) mg/dl Est Cr Clr Drug Dosing ml/min Est GFR ( Amer) ml/min Est GFR (Non-Af Amer) ml/min BUN/Creatinine Ratio (10-20) Glucose (70-99) mg/dl Calcium (8.5-10.1) mg/dl Total Bilirubin (0.2-1) mg/dl AST (15-37) U/L ALT (12-78) Alkaline Phosphatase (45-117) U/L Troponin I (0-0.045) ng/ml Total Protein (6.4-8.2) gm/dl Albumin (3.4-5.0) gm/dl Globulin (2.5-4.0) gm/dl Albumin/Globulin Ratio (0.9-2) SARS-CoV-2 (PCR) NEGATIVE (Negative) Influenza Type A (PCR) Negative (Neg) Influenza Type B (PCR) Negative (Neg) RSV (RT-PCR) Negative (Neg) 09/25/21 Range/Units 18:47 WBC (4.8-10.8) K/uL RBC (4.7-6.1) M/uL Hgb (14.0-18.0) g/dL Hct (42-52) % MCV (80-100) fL MCH (25-34) pg MCHC (32-36) g/dL RDW Std Deviation (36.4-46.3) fL RDW Coeff of Ellyn (11.5-14.5) % Plt Count (130-400) K/uL MPV (7.4-10.4) fL Immature Gran % (Auto) % Neut % (Auto) % Lymph % (Auto) % [place] % (Auto) % Eos % (Auto) % Baso % (Auto) % Neut # (Auto) (1.4-6.5) K/uL Lymph # (Auto) (1.2-3.4) K/uL [place] # (Auto) (0.11-0.59) K/uL Eos # (Auto) (0-0.5) K/uL Baso # (Auto) (0-0.2) K/uL Immature Gran # (Auto) (0.00-0.02) K/uL PT (9.0-12.0) Seconds INR (0.9-1.1) APTT (21.0-31.0) Seconds PTT Ratio Sodium 137 (136-145) mmol/L Potassium 3.9 (3.5-5.1) mmol/L Chloride 106 (98-107) mmol/L Carbon Dioxide 25 (21-32) mmol/L Anion Gap 6.0 (3-11) BUN 15 (7-18) mg/dl Creatinine 0.94 (0.6-1.4) mg/dl Est Cr Clr Drug Dosing 112.0 ml/min Est GFR ( Amer) 106.9 ml/min Est GFR (Non-Af Amer) 92.2 ml/min BUN/Creatinine Ratio 16.1 (10-20) Glucose 101 H (70-99) mg/dl Calcium 9.2 (8.5-10.1) mg/dl Total Bilirubin 0.4 (0.2-1) mg/dl AST 15 (15-37) U/L ALT 30 (12-78) Alkaline Phosphatase 88 (45-117) U/L Troponin I < 0.015 (0-0.045) ng/ml Total Protein 7.7 (6.4-8.2) gm/dl Albumin 3.5 (3.4-5.0) gm/dl Globulin 4.2 H (2.5-4.0) gm/dl Albumin/Globulin Ratio 0.8 L (0.9-2) SARS-CoV-2 (PCR) (Negative) Influenza Type A (PCR) (Neg) Influenza Type B (PCR) (Neg) RSV (RT-PCR) (Neg) Administered Medications Discontinued Medications Sodium Chloride (Nss 1000ml) 1,000 mls @ 999 mls/hr IV .Q1H1M CLARA Stop: 09/25/21 21:51 Last Infusion: 09/25/21 23:02 Dose: 0 mls/hr Documented by: [id number] Admin: 09/25/21 21:51 Dose: 999 mls/hr Documented by: [id number] Ioversol (Optiray 320 125ml) 118 ml IV ONCE ONE Stop: 09/25/21 21:14 Last Admin: 09/25/21 21:13 Dose: 118 ml Documented by: [id number] Imaging Data Radiologist's Impression: Chest X-Ray 09/25/21 18:07 XR chest 2V PA/lateral HISTORY: 51 years-old Male Chest Pain . Atypical chest pain COMPARISON: CTA chest and chest radiograph 07/19/2019 TECHNIQUE: PA and lateral views of the chest FINDINGS: The cardiomediastinal and hilar silhouettes are within normal limits. No pneumothorax, pleural effusion, airspace consolidation or overt pulmonary edema. Degenerative changes of the shoulders and spine. IMPRESSION: No acute process. ACT 112: Negative or not required by law. The above report was generated using voice recognition software. It may contain grammatical, syntax or spelling errors. Electronically signed by: Bo Garnica M.D. 09/25/2021 6:39 PM Discharge Plan Visit Data Chief Complaint: Chest Pain Stated Complaint: HEADACHE, CHEST PAIN, ABDOMINAL PAIN ED Provider: Tristan Miner Discharge Problem: Chest pain Forms Stand Alone Forms: [facility] [employer] Prescriptions Prescriptions: No Action warfarin 5 mg tablet See Rx Instructions PO DAILY RF: 0 diclofenac sodium [Voltaren] 1 % gel 4 g topical QID Qty: 100 RF: 2 atorvastatin 10 mg tablet 10 mg PO QPM Qty: 90 RF: 3 azelastine 137 mcg (0.1 %) aerosol,spray 2 spray intranasal BID Qty: 30 RF: 2 montelukast [Singulair] 10 mg tablet 10 mg PO QPM Qty: 90 RF: 3 acetaminophen [Tylenol Extra Strength] 500 mg Tablet 1,000 mg PO Q6H PRN (Reason: Pain) RF: 0 diclofenac sodium [Voltaren] 1 % Gel 2 g TOPICAL QID RF: 0 Referrals Referrals: Corine Moss MD [Primary Care Provider] -
[2021-09-25] MEDS ORDERED: OPTIRAY 320 125ml IV ONE (21:13)
[2021-09-25] MEDS ORDERED: ASPIRIN CHEW 324 MG PO STA (23:59)
--- NOTE | 2021-09-26 00:32 | History & Physical Report ---
Date of Service September 26, 2021 Assessment & Plan (1) Chest pain: Plan: 51yo male with history of HLP, tobacco use, FHx of CAD (Father with [place] at age 57) presenting with 3 weeks of left sided chest discomfort with associated diaphoresis and dizziness - exertional, relieved with rest. EKG with no acute ischemic changes. Troponin negative x 1. Patient did have a Dobutamine stress test performed on 09/02/19 which was negative for inducible ischemia - EF normal size and function with no regional WMA. Study was technically difficult, however, with poor image quality. -Telemetry monitoring -Trend troponin -Exercise stress echo if troponin negative (2) Recurrent deep vein thrombosis (DVT): Plan: Patient with recurrent DVT on Coumadin anticoagulation. He is subtherapeutic now with INR of 1.6. States he has not missed any doses or changed his diet. No recent medications. -Administer 10mg tonight -Continue Coumadin -Monitor INR (3) Obstructive sleep apnea syndrome: Plan: Chronic. Patient states he is compliant with his CPAP. Is not sure of the setting -Continue CPAP qHS (4) Hyperlipidemia: Plan: Chronic -Continue Atorvastatin (5) Smokes 1/2 pack per day: Plan: Tobacco cessation counseling offered -Nicotine patch Plan: F/E/N - Heplock. Monitor electrolytes. NPO for now Ppx - Continue Coumadin with 10mg dose x 1 now Code - Full Dispo - Observation to medical with telemetry History of Present Illness Chief Complaint: chest pain Primary Care Provider: Corine Moss MD Martin Lee is a 51yo male with history of DVT/PE on Coumadin anticoagulation, HLP and FABY. Patient presenting with intermittent left sided chest discomfort ongoing x 3 weeks. Pain is located in the left chest with radiation down the left arm and into the upper abdomen. Severity is 8/10. Pain occurs mostly with stress and activity/exertion. It can last up to 3 hours. Relieved by rest. He has associated diaphoresis and shortness of breath as well. Discomfort does not occur at rest. Mostly non-positional and non-pleuritic, although it does seem to get worse when he pulls. He does not that the discomfort has become more frequent and severe over the last 3 weeks. He denies dizziness, lightheadedness. He has had some subjective fevers/chills and sweats as well. No additional complaints at this time. ER course: ASA Allergies Allergy/AdvReac Type Severity Reaction Status Date / Time pollen extracts Allergy Intermediate ITCHY Verified 07/28/21 15:16 EYES, SNEEZING, CONGESTION cat dander Allergy Verified 07/28/21 15:16 dog dander Allergy Verified 07/28/21 15:16 No Known Drug Allergies Allergy Verified 07/28/21 15:16 Home Medications Medication Instructions Recorded Confirmed Type acetaminophen 500 mg tablet 1,000 mg PO Q6H PRN 07/30/19 09/25/21 History (Tylenol Extra Strength) atorvastatin 10 mg tablet 10 mg PO QPM #90 tab 09/07/20 09/25/21 Rx diclofenac sodium 1 % topical gel 4 g TOPICAL QID #100 g 09/07/20 08/11/21 Rx (Voltaren) montelukast 10 mg tablet 10 mg PO QPM #90 tab 02/15/21 09/25/21 Rx (Singulair) azelastine 137 mcg (0.1 %) nasal 2 spray INTRANASAL BID #30 ml 07/10/21 09/25/21 Rx spray aerosol warfarin 5 mg tablet See Rx Instructions PO DAILY tab 07/14/21 09/25/21 History diclofenac sodium 1 % topical gel 2 g TOPICAL QID 09/25/21 09/25/21 History Past Med/Surg History Medical History Bilateral pulmonary embolism Chronic head pain Deep vein thrombosis (DVT) of left lower extremity Family history of DVT Hearing deficit History of kidney stones Hyperlipidemia Lumbar back pain Morbid obesity with BMI of 45.0-49.9, adult Nausea and vomiting after administration of anesthetic agent Obstructive sleep apnea syndrome On anticoagulant therapy Recurrent deep vein thrombosis (DVT) Skull fracture Smokes 1/2 pack per day Surgical History History of appendectomy History of arthroscopy of left knee History of tooth extraction History of total knee arthroplasty History of total left knee replacement (TKR) Family History Mother Blood clot in vein Father Aortic aneurysm Myocardial infarction Family history of diabetes mellitus Blood clot in vein Other No family history of adverse response to anesthesia Denies family history of Ovarian cancer Prostate cancer Breast cancer Colorectal cancer Social History Smoking Status: Current every day smoker Age Started Using Tobacco: 35; packs per day: 0.5; Cigarettes Per Day: 10 a day; Second Hand Exposure: Yes (parents smoked); Hx Alcohol Use: Yes Alcohol type: beer, wine and hard liquor Hx Substance Use: No Preferred Language: [place] Communication Ability: Effective Visual Impairment: Limited Hearing Ability: Normal Preparator Required: No Beliefs That Will Affect Care: None marital status: Current Living Situation: Spouse and Family Current Living Situation Comment: Lives with and daughter current occupational status: employed 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 Feels Safe at Home: Yes Childhood Exposure to Second-Hand Smoke: Yes Dental Care, Regularly: No Physical Activity Frequency: Does not Exercise Seatbelt Use: always Sunscreen Use: Yes Assistive Devices: CPAP and Glasses Review of Systems Review of Systems: All systems reviewed & are unremarkable except as noted in HPI & below Physical Exam Physical Exam: General: patient resting comfortably, NAD, non-toxic in appearance, AA&O x 4 Skin: warm, dry, intact, no rashes or lesions HEENT: NC/AT, PERRL, EOMI, anicteric sclera, conjunctiva without injection, external ear normal to inspection and nontender, nares patent, moist mucus membranes, dentition intact, no oropharyngeal lesions, neck supple, trachea midline, no LAD, no thyromegaly, no JVD Heart: +S1/S2, regular, no m/r/g, no reproducible chest wall pain Lungs: equal air entry bilaterally, no rales/rhonchi/wheezes Abd: +BS, soft, NT/ND, no masses/organomegaly/ascites Ext: warm, 2+ pulses in UE/LE bilaterally, no clubbing/cyanosis or edema Neuro: nonfocal, patient AA&O x 4, speech intact, no facial droop, moving all extremities on command with equal strength 5/5 Results & Data Results & Data ([facility]) Vital Signs (Past 12 Hours) Vital Signs Temp Pulse Pulse Resp BP BP Pulse Ox 09/26/21 00:17 64 24 131/65 96 09/25/21 20:46 62 14 162/100 H 98 09/25/21 18:07 68 97 09/25/21 18:04 36.7 C 71 20 157/90 H 97 Laboratory Results Laboratory Results WBC 5.67 K/uL (4.8-10.8) 09/25/21 18:47 RBC 4.66 M/uL (4.7-6.1) L 09/25/21 18:47 Hgb 15.2 g/dL (14.0-18.0) 09/25/21 18:47 Hct 44.1 % (42-52) 09/25/21 18:47 MCV 94.6 fL (80-100) 09/25/21 18:47 MCH 32.6 pg (25-34) 09/25/21 18:47 MCHC 34.5 g/dL (32-36) 09/25/21 18:47 RDW Std Deviation 45.2 fL (36.4-46.3) 09/25/21 18:47 RDW Coeff of Ellyn 13.1 % (11.5-14.5) 09/25/21 18:47 Plt Count 158 K/uL (130-400) 09/25/21 18:47 MPV 10.1 fL (7.4-10.4) 09/25/21 18:47 Immature Gran % (Auto) 0.0 % 09/25/21 18:47 Neut % (Auto) 46.9 % 09/25/21 18:47 Lymph % (Auto) 32.8 % 09/25/21 18:47 [place] % (Auto) 17.6 % 09/25/21 18:47 Eos % (Auto) 2.3 % 09/25/21 18:47 Baso % (Auto) 0.4 % 09/25/21 18:47 Neut # (Auto) 2.66 K/uL (1.4-6.5) 09/25/21 18:47 Lymph # (Auto) 1.86 K/uL (1.2-3.4) 09/25/21 18:47 [place] # (Auto) 1.00 K/uL (0.11-0.59) H 09/25/21 18:47 Eos # (Auto) 0.13 K/uL (0-0.5) 09/25/21 18:47 Baso # (Auto) 0.02 K/uL (0-0.2) 09/25/21 18:47 Immature Gran # (Auto) 0.00 K/uL (0.00-0.02) 09/25/21 18:47 PT 15.4 Seconds (9.0-12.0) H 09/25/21 18:47 INR 1.6 (0.9-1.1) H 09/25/21 18:47 APTT 31.7 Seconds (21.0-31.0) H 09/25/21 18:47 PTT Ratio 1.2 09/25/21 18:47 Sodium 137 mmol/L (136-145) 09/25/21 18:47 Potassium 3.9 mmol/L (3.5-5.1) 09/25/21 18:47 Chloride 106 mmol/L (98-107) 09/25/21 18:47 Carbon Dioxide 25 mmol/L (21-32) 09/25/21 18:47 Anion Gap 6.0 (3-11) 09/25/21 18:47 BUN 15 mg/dl (7-18) 09/25/21 18:47 Creatinine 0.94 mg/dl (0.6-1.4) 09/25/21 18:47 Est Cr Clr Drug Dosing 112.0 ml/min 09/25/21 18:47 Est GFR ( Amer) 106.9 ml/min 09/25/21 18:47 Est GFR (Non-Af Amer) 92.2 ml/min 09/25/21 18:47 BUN/Creatinine Ratio 16.1 (10-20) 09/25/21 18:47 Glucose 101 mg/dl (70-99) H 09/25/21 18:47 Calcium 9.2 mg/dl (8.5-10.1) 09/25/21 18:47 Total Bilirubin 0.4 mg/dl (0.2-1) 09/25/21 18:47 AST 15 U/L (15-37) 09/25/21 18:47 ALT 30 (12-78) 09/25/21 18:47 Alkaline Phosphatase 88 U/L (45-117) 09/25/21 18:47 Troponin I < 0.015 ng/ml (0-0.045) 09/25/21 18:47 Total Protein 7.7 gm/dl (6.4-8.2) 09/25/21 18:47 Albumin 3.5 gm/dl (3.4-5.0) 09/25/21 18:47 Globulin 4.2 gm/dl (2.5-4.0) H 09/25/21 18:47 Albumin/Globulin Ratio 0.8 (0.9-2) L 09/25/21 18:47 SARS-CoV-2 (PCR) NEGATIVE (Negative) 09/25/21 18:05 Influenza Type A (PCR) Negative (Neg) 09/25/21 18:05 Influenza Type B (PCR) Negative (Neg) 09/25/21 18:05 RSV (RT-PCR) Negative (Neg) 09/25/21 18:05 Impressions Chest X-Ray 09/25/21 18:07 XR chest 2V PA/lateral HISTORY: 51 years-old Male Chest Pain . Atypical chest pain COMPARISON: CTA chest and chest radiograph 07/19/2019 TECHNIQUE: PA and lateral views of the chest FINDINGS: The cardiomediastinal and hilar silhouettes are within normal limits. No pneumothorax, pleural effusion, airspace consolidation or overt pulmonary edema. Degenerative changes of the shoulders and spine. IMPRESSION: No acute process. ACT 112: Negative or not required by law. The above report was generated using voice recognition software. It may contain grammatical, syntax or spelling errors. Electronically signed by: Bo Garnica M.D. 09/25/2021 6:39 PM ECG Additional Comments: EKG with NSR at 69bpm, RBBB Code Status & VTE Plan VTE Prophylaxis Plan VTE Prophylaxis will be ordered: Yes PG Care Time/CCT Total # of Minutes Spent Total Time Spent with Patient: Total time spent is greater than 50% in coordination of care (as documented) at patient's floor/unit and/or counseling patient: Coding Level of Care Code INT OBSERVATION CARE 50M LVL 2 Diagnoses Chest pain R07.9 Chest pain type: unspecified Recurrent deep vein thrombosis (DVT) I82.409 Obstructive sleep apnea syndrome G47.33 Hyperlipidemia E78.5 Smokes 1/2 pack per day F17.210 (1) Chest pain Chest pain type: unspecified Qualified Code(s): R07.9 - Chest pain, unspecified
[2021-09-26] MEDS ORDERED: NITROGLYCERIN SL 0.4 MG/TAB TAB SL PRN (04:01)
[2021-09-26] MEDS ORDERED: ONDANSETRON INJ 2 MG/ML 2 ML VIAL IV PRN (04:01)
[2021-09-26] MEDS ORDERED: ACETAMINOPHEN 500 MG TAB PO PRN (04:29)
[2021-09-26] MEDS ORDERED: WARFARIN SOD 10 MG TAB PO ONE (04:30)
[2021-09-26 05:39] LABS: Troponin I < 0.015 ng/ml (0-0.045)
[2021-09-26 05:49] LABS: Magnesium 2.3 mg/dl (1.8-2.4)
--- NOTE | 2021-09-26 07:37 | CT Scan Report ---
CT ANGIOGRAM OF THE CHEST CLINICAL HISTORY: Dyspnea. Atypical chest pain. COMPARISON STUDY: Chest x-ray dated 09/25/2021. Chest CT dated 07/19/2019. TECHNIQUE: Following the IV administration of 118 cc of Optiray 320, CT angiogram of the chest was pe rformed from the upper abdomen to the thoracic inlet utilizing the pulmonary embolus protocol. Images are reviewed in the axial, sagittal, and coronal planes. 3-D MIPS images are created and assessed. I V contrast was administered without complication. A dose lowering technique was utilized adhering to the principles of ALARA. Examination is degraded by motion artifact. CT DOSE: 983.01 mGy.cm FINDINGS: Thyroid: Imaged portions of the thyroid gland are normal in size and attenuation. Thoracic aorta: The thoracic aorta is normal in caliber and demonstrates standard 3-vessel arch anato my. No dissection is seen. Pulmonary vasculature: The pulmonary trunk is normal in caliber. There are no filling defects identif ied in main, lobar, or proximal segmental pulmonary branches to suggest pulmonary embolus. Evaluation of the segmental and subsegmental branches is significantly degraded by motion artifact. Heart: The heart is top normal in size and without pericardial effusion. There is advanced coronary a rtery calcification. Lungs and pleural spaces: Evaluation of the lung parenchyma is degraded by motion artifact. There is no airspace consolidation typical for pneumonia or pleural effusion. Atelectasis is noted at the lung bases. The trachea and central airways appear clear. Mediastinum: There is no mediastinal lymphadenopathy. Rachel: Mildly enlarged hilar nodes measure up to 15 mm in short axis. Axillae: There is no axillary lymphadenopathy. Upper abdomen: There is a small hiatal hernia. The liver appears steatotic. Skeletal structures: Degenerative change is noted in the shoulders and thoracic spine. No lytic or bl astic bony lesions are seen. IMPRESSION: 1. Motion degraded examination. 2. There is no evidence of central pulmonary embolus in the main, lobar, or proximal segmental pulmon dolly arteries. Evaluation of the peripheral branches is significantly degraded by motion artifact. 3. There is no airspace consolidation or pleural effusion. 4. Mildly enlarged hilar nodes are nonspecific similar to the 2019 examination. 5. Advanced coronary artery calcification. 6. Hepatic steatosis. 7. Additional findings as above. ACT 112: Negative or not required by law. Electronically signed by: Gustavo Malik M.D. 09/26/2021 7:35 AM
[2021-09-26] MEDS ORDERED: NICOTINE 21 MG/24 HR TDSY TD SCH (09:00)
--- NOTE | 2021-09-26 14:12 | Discharge Summary ---
Date of Service September 26, 2021 Admission HPI Per Admitting Provider Martin Lee is a 51yo male with history of DVT/PE on Coumadin anticoagulation, HLP and FABY. Patient presenting with intermittent left sided chest discomfort ongoing x 3 weeks. Pain is located in the left chest with radiation down the left arm and into the upper abdomen. Severity is 8/10. Pain occurs mostly with stress and activity/exertion. It can last up to 3 hours. Relieved by rest. He has associated diaphoresis and shortness of breath as well. Discomfort does not occur at rest. Mostly non-positional and non-pleuritic, although it does seem to get worse when he pulls. He does not that the discomfort has become more frequent and severe over the last 3 weeks. He denies dizziness, lightheadedness. He has had some subjective fevers/chills and sweats as well. No additional complaints at this time. ER course: ASA Admission Exam Per Admitting Provider General: patient resting comfortably, NAD, non-toxic in appearance, AA&O x 4 Skin: warm, dry, intact, no rashes or lesions HEENT: NC/AT, PERRL, EOMI, anicteric sclera, conjunctiva without injection, external ear normal to inspection and nontender, nares patent, moist mucus membranes, dentition intact, no oropharyngeal lesions, neck supple, trachea midline, no LAD, no thyromegaly, no JVD Heart: +S1/S2, regular, no m/r/g, no reproducible chest wall pain Lungs: equal air entry bilaterally, no rales/rhonchi/wheezes Abd: +BS, soft, NT/ND, no masses/organomegaly/ascites Ext: warm, 2+ pulses in UE/LE bilaterally, no clubbing/cyanosis or edema Neuro: nonfocal, patient AA&O x 4, speech intact, no facial droop, moving all extremities on command with equal strength 5/5 Principal Diagnosis Chest Pain Discharge Exam Constitutional WD/WN, vitals as above Neck trachea midline, no thyromegaly Respiratory normal respiratory effort, lungs clear to auscultation Cardiovascular RRR, no murmur, no edema Gastrointestinal (Abdomen) normal bowel sounds, soft, nontender, no hepatosplenomegaly Discharge Data Allergies Allergy/AdvReac Type Severity Reaction Status Date / Time pollen extracts Allergy Intermediate ITCHY Verified 07/28/21 15:16 EYES, SNEEZING, CONGESTION cat dander Allergy Verified 07/28/21 15:16 dog dander Allergy Verified 07/28/21 15:16 No Known Drug Allergies Allergy Verified 07/28/21 15:16 Consultations 09/25/21 23:59 ED Decision to Admit Stat Procedures Performed Normal sinus rhythm Right bundle branch block Abnormal ECG When compared with ECG of 22-JUL-2019 10:19, Right bundle branch block has replaced Non-specific intra-ventricular conduction block Ordered Studies 09/25/21 20:51 CT angio chest PE protocol Stat Chest X-Ray 09/25/21 18:07 XR chest 2V PA/lateral HISTORY: 51 years-old Male Chest Pain . Atypical chest pain COMPARISON: CTA chest and chest radiograph 07/19/2019 TECHNIQUE: PA and lateral views of the chest FINDINGS: The cardiomediastinal and hilar silhouettes are within normal limits. No pneumothorax, pleural effusion, airspace consolidation or overt pulmonary edema. Degenerative changes of the shoulders and spine. IMPRESSION: No acute process. ACT 112: Negative or not required by law. The above report was generated using voice recognition software. It may contain grammatical, syntax or spelling errors. Electronically signed by: Bo Garnica M.D. 09/25/2021 6:39 PM Chest CTA 09/25/21 20:51 CT ANGIOGRAM OF THE CHEST CLINICAL HISTORY: Dyspnea. Atypical chest pain. COMPARISON STUDY: Chest x-ray dated 09/25/2021. Chest CT dated 07/19/2019. TECHNIQUE: Following the IV administration of 118 cc of Optiray 320, CT angiogram of the chest was performed from the upper abdomen to the thoracic inlet utilizing the pulmonary embolus protocol. Images are reviewed in the axial, sagittal, and coronal planes. 3-D MIPS images are created and assessed. IV contrast was administered without complication. A dose lowering technique was utilized adhering to the principles of ALARA. Examination is degraded by motion artifact. CT DOSE: 983.01 mGy.cm FINDINGS: Thyroid: Imaged portions of the thyroid gland are normal in size and attenuation. Thoracic aorta: The thoracic aorta is normal in caliber and demonstrates standard 3-vessel arch anatomy. No dissection is seen. Pulmonary vasculature: The pulmonary trunk is normal in caliber. There are no filling defects identified in main, lobar, or proximal segmental pulmonary branches to suggest pulmonary embolus. Evaluation of the segmental and subsegmental branches is significantly degraded by motion artifact. Heart: The heart is top normal in size and without pericardial effusion. There is advanced coronary artery calcification. Lungs and pleural spaces: Evaluation of the lung parenchyma is degraded by motion artifact. There is no airspace consolidation typical for pneumonia or pleural effusion. Atelectasis is noted at the lung bases. The trachea and central airways appear clear. Mediastinum: There is no mediastinal lymphadenopathy. Rachel: Mildly enlarged hilar nodes measure up to 15 mm in short axis. Axillae: There is no axillary lymphadenopathy. Upper abdomen: There is a small hiatal hernia. The liver appears steatotic. Skeletal structures: Degenerative change is noted in the shoulders and thoracic spine. No lytic or blastic bony lesions are seen. IMPRESSION: 1. Motion degraded examination. 2. There is no evidence of central pulmonary embolus in the main, lobar, or proximal segmental pulmonary arteries. Evaluation of the peripheral branches is significantly degraded by motion artifact. 3. There is no airspace consolidation or pleural effusion. 4. Mildly enlarged hilar nodes are nonspecific similar to the 2019 examination. 5. Advanced coronary artery calcification. 6. Hepatic steatosis. 7. Additional findings as above. ACT 112: Negative or not required by law. Electronically signed by: Gustavo Malik M.D. 09/26/2021 7:35 AM Hospital Course (1) Chest pain: (2) Hyperlipidemia: (3) Obstructive sleep apnea syndrome: (4) Smokes 1/2 pack per day: (5) Recurrent deep vein thrombosis (DVT): 1. chest pain resolved, negative stress echo performed in hospital. See above results Associated with chronic dyspnea likely worsened with the patient's history of tobacco, and increased weight. Plan on discharge with albuterol inhaler for future dyspnea with follow-up by his PCP Consideration for pulmonary function testing in the future Tobacco cessation not receptive at this time 2. Hyperlipidemia continue his atorvastatin 10 mg daily 3. FABY follow-up with primary care, continue CPAP at current settings 4. Tobacco cessation 5. recurrent DVT with history of PE. Follow-up with anticoagulation Clinic, patient to call clinic for additional adjustments of his warfarin Total Time Total Time Spent Total Time Spent (In Minutes): >30 Discharge Plan Discharge Items Patient Disposition: Home - Self-Care Reason For Visit: CHEST PAIN Discharge Diagnosis: chest pain Condition on Discharge: Good Health Concerns: chronic tobacco dependence, Obesity Activity: Resume your previous activity Lifting: Gradually increase as tolerated Bathing: No limitations Sexual Activity: When tolerated Exercise/Sports: Gradually increase as tolerated Driving/Machine Use: No limitations Weightbearing: Full weightbearing Non-emergency contact: Primary Care Provider Call non-emergency contact if: you have any medication questions, your symptoms worsen, your pain is worsening, your pain is unusual for you and you have a fever Follow-up/Referrals: Corine Moss MD [Primary Care Provider] - Diet: Low Sodium (2gm) Addtl Attending Provider Instructions: consider tobacco cessation, [id number] medications, prescription and or counseling Exercise as tolerated in addition the patient has normal physical job Consider referral to weight management clinic, nutrition Pending Studies at Discharge: No Stand-Alone Forms: My [facility] Pay, Smoking Cessation Medications and DC Order Prescriptions: New nicotine [Nicoderm CQ] 21 mg/24 hr Patch 24 Hour 21 mg transdermal QAM Qty: 30 RF: 0 Continued warfarin 5 mg tablet See Rx Instructions PO DAILY RF: 0 atorvastatin 10 mg tablet 10 mg PO QPM Qty: 90 RF: 3 azelastine 137 mcg (0.1 %) aerosol,spray 2 spray intranasal BID Qty: 30 RF: 2 montelukast [Singulair] 10 mg tablet 10 mg PO QPM Qty: 90 RF: 3 acetaminophen [Tylenol Extra Strength] 500 mg Tablet 1,000 mg PO Q6H PRN (Reason: Pain) RF: 0 diclofenac sodium 1 % Gel 2 g TOPICAL QID RF: 0 Discontinued diclofenac sodium [Voltaren] 1 % gel 4 g topical QID Qty: 100 RF: 2 Discharge Orders: Discharge Order (Routine); Ordered 09/26/21 Ordered By: Conor Mejia Admission Data Admit Date/Time: 09/26/21 00:31 Attending Provider: Conor Mejia Admit Provider: Rhonda Christie Primary Care Provider: Corine Moss Other Providers: Rhonda Christie Coding Level of Care Code 61263 OBS Care - Discharge Diagnoses Hyperlipidemia E78.5 Obstructive sleep apnea syndrome G47.33 Smokes 1/2 pack per day F17.210 Recurrent deep vein thrombosis (DVT) I82.409 Chest pain R07.9 Chest pain type: unspecified
[2021-09-26] MEDS ORDERED: WARFARIN SOD 7.5 MG TAB PO SCH (16:00)
[2021-09-26] MEDS ORDERED: ATORVASTATIN 10 MG TAB PO SCH (21:00)
[2021-09-26] MEDS ORDERED: MONTELUKAST SODIUM 10 MG TABLET PO SCH (21:00)
--- NOTE | 2021-09-27 13:17 | Electrocardiogram Report ---
Test Reason : Blood Pressure : / mmHG Vent. Rate : 069 BPM Atrial Rate : 069 BPM P-R Int : 186 ms QRS Dur : 126 ms QT Int : 384 ms P-R-T Axes : 052 102 069 degrees QTc Int : 411 ms Normal sinus rhythm Right bundle branch block Abnormal ECG When compared with ECG of 22-JUL-2019 10:19, No significant change Confirmed by Eduardo Reynoso ([id number]) on 09/27/2021 1:17:15 PM Referred By: REFERRED SELF Confirmed By:Eduardo Reynoso
--- NOTE | 2021-09-27 17:00 | XCELERA ---
[id number]
[2021-10-02] MEDS ORDERED: WARFARIN SOD 10 MG TAB PO SCH (16:00)
== END 2021-09-26 14:41 | disposition home or self-care (01) ==
LOC: EDINP 17:47 → ED 17:47 → SUATTDRO 09-26 00:31 → EDINP 09-26 03:59

== ENCOUNTER 2022-04-17 20:37 | Observation (INO) ==
[2022-04-17] MEDS ORDERED: MoRPHine SULFATE 4 MG/ML 1 ML CARP\\VIAL IV STA ×2 (21:49→23:20)
[2022-04-17] MEDS ORDERED: ONDANSETRON INJ 2 MG/ML 2 ML VIAL IV STA (21:49)
--- NOTE | 2022-04-17 21:50 | Emergency Department Note ---
History of Present Illness General Chief complaint: Hip Pain Stated complaint: LEFT HIP AND LEG PAIN Time Seen by Provider: 04/17/22 21:38 History of Present Illness Maximum Pain Intensity: 10 This is a 51-year-old male that presents to the emergency department via private vehicle accompanied by with complaints of "left hip and leg pain". The patient notes that earlier today he was carrying a metal beam and around this time began with discomfort to his left thigh region. He points to the left lateral leg as a location of discomfort but also notes that he felt a pop to the left medial thigh region where he now notes a bruise. He states that he currently is on anticoagulation, and takes warfarin. Patient notes a history of PE/DVT. Patient denies any known direct trauma or injury to the area. Patient does note some minor back pain with this but this is not new. Current pain 07/23. Patient notes pain is worse with attempted flexion of the left knee/hip as well as weightbearing. Home Medications Medication Instructions Recorded Confirmed Type atorvastatin 10 mg tablet 10 mg PO QPM #90 tab 09/07/20 04/17/22 Rx montelukast 10 mg tablet 10 mg PO QPM #90 tab 02/15/21 04/17/22 Rx (Singulair) azelastine 137 mcg (0.1 %) nasal 2 spray INTRANASAL BID #30 ml 07/10/21 04/17/22 Rx spray aerosol diclofenac sodium 1 % topical gel 2 g TOPICAL QID PRN 09/25/21 04/17/22 History CBD OTC Cream 1 applic TOPICAL BID PRN 03/02/22 04/17/22 History acetaminophen 500 mg tablet 1,000 mg PO DIRECTED PRN tab 03/02/22 04/17/22 History (Tylenol Extra Strength) warfarin 5 mg tablet See Rx Instructions .ROUTE .COMPLEX 04/17/22 04/17/22 History Allergies Allergy/AdvReac Type Severity Reaction Status Date / Time cat dander Allergy Intermediate ITCHY Verified 04/17/22 23:40 EYES, SNEEZING, CONGESTION dog dander Allergy Intermediate ITCHY Verified 04/17/22 23:40 EYES, SNEEZING, CONGESTION pollen extracts Allergy Intermediate ITCHY Verified 04/17/22 23:40 EYES, SNEEZING, CONGESTION Past Med/Surg History Medical History Bilateral pulmonary embolism 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 Deep vein thrombosis (DVT) of left lower extremity Family history of DVT Hearing deficit History of kidney stones Hyperlipidemia Lumbar back pain Morbid obesity with BMI of 45.0-49.9, adult Nausea and vomiting after administration of anesthetic agent Obstructive sleep apnea syndrome cpap On anticoagulant therapy warfarin daily Recurrent deep vein thrombosis (DVT) left leg Skull fracture Smokes 1/2 pack per day Surgical History History of appendectomy History of arthroscopy of left knee x5 History of tooth extraction History of total knee arthroplasty History of total left knee replacement (TKR) Family History Mother Blood clot in vein Father Aortic aneurysm Myocardial infarction Family history of diabetes mellitus Blood clot in vein Other No family history of adverse response to anesthesia Denies family history of Ovarian cancer Prostate cancer Breast cancer Colorectal cancer Social History Smoking Status: Current every day smoker Tobacco Type: Smokeless Tobacco (Dip or Chew) Age Started Using Tobacco: 35; packs per day: 0.5; Cigarettes Per Day: 10; Second Hand Exposure: Yes; Hx Alcohol Use: Yes Alcohol type: beer Hx Substance Use: No Preferred Language: Setswana Communication Ability: Effective Visual Impairment: Limited Hearing Ability: Normal Network 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 Feels Safe at Home: Yes Childhood Exposure to Second-Hand Smoke: Yes Dental Care, Regularly: No Physical Activity Frequency: Does not Exercise Seatbelt Use: always Sunscreen Use: Yes Assistive Devices: None Review of Systems A total of 10 systems reviewed and were otherwise negative Physical Exam Vital Signs Vital Signs - 24 hr 04/17/22 20:47 04/17/22 22:38 04/17/22 23:51 Temperature 36.6 C Temperature Source Temporal Artery Scan Pulse Rate 84 68 Pulse Rate [Right Finger] 85 Pulse Rate from SpO2 Sensor Pulse Rhythm Regular Pulse Rhythm [Right Finger] Regular Pulse Strength Normal Pulse Strength [Right Finger] Normal Respiratory Rate 18 18 18 Respiratory Effort / Characteristics Non-Labored Non-Labored Spontaneous Respiratory Depth Normal Normal Respiratory Pattern Regular Regular Blood Pressure 151/78 H 113/63 Blood Pressure [Right Arm] 131/76 Blood Pressure Mean 102 79 Blood Pressure Mean [Right Arm] 94 Blood Pressure Position Sitting Blood Pressure Position [Right Arm] Sitting Pulse Oximetry 97 98 94 Oxygen Delivery Method Room Air Room Air Room Air Sepsis Recent Fever Within 48 Hours No Sepsis New/Unexplained Change in Mental Status N/A Sepsis Action Taken by Nursing No Action Required 04/17/22 23:53 04/18/22 00:00 04/18/22 00:23 Temperature Temperature Source Pulse Rate 74 65 69 Pulse Rate [Right Finger] Pulse Rate from SpO2 Sensor 73 65 69 Pulse Rhythm Pulse Rhythm [Right Finger] Pulse Strength Pulse Strength [Right Finger] Respiratory Rate 19 25 H 15 Respiratory Effort / Characteristics Respiratory Depth Respiratory Pattern Blood Pressure 149/73 H 135/78 Blood Pressure [Right Arm] Blood Pressure Mean 98 97 Blood Pressure Mean [Right Arm] Blood Pressure Position Blood Pressure Position [Right Arm] Pulse Oximetry 92 96 96 Oxygen Delivery Method Sepsis Recent Fever Within 48 Hours Sepsis New/Unexplained Change in Mental Status Sepsis Action Taken by Nursing 04/18/22 00:30 04/18/22 01:00 04/18/22 01:34 Temperature Temperature Source Pulse Rate 72 79 92 H Pulse Rate [Right Finger] Pulse Rate from SpO2 Sensor 80 Pulse Rhythm Pulse Rhythm [Right Finger] Pulse Strength Pulse Strength [Right Finger] Respiratory Rate 21 22 19 Respiratory Effort / Characteristics Respiratory Depth Respiratory Pattern Blood Pressure 129/75 109/70 Blood Pressure [Right Arm] Blood Pressure Mean 93 83 Blood Pressure Mean [Right Arm] Blood Pressure Position Blood Pressure Position [Right Arm] Pulse Oximetry 95 Oxygen Delivery Method Sepsis Recent Fever Within 48 Hours Sepsis New/Unexplained Change in Mental Status Sepsis Action Taken by Nursing 04/18/22 02:00 Temperature Temperature Source Pulse Rate 79 Pulse Rate [Right Finger] Pulse Rate from SpO2 Sensor Pulse Rhythm Pulse Rhythm [Right Finger] Pulse Strength Pulse Strength [Right Finger] Respiratory Rate 23 Respiratory Effort / Characteristics Respiratory Depth Respiratory Pattern Blood Pressure Blood Pressure [Right Arm] Blood Pressure Mean Blood Pressure Mean [Right Arm] Blood Pressure Position Blood Pressure Position [Right Arm] Pulse Oximetry Oxygen Delivery Method Sepsis Recent Fever Within 48 Hours Sepsis New/Unexplained Change in Mental Status Sepsis Action Taken by Nursing VITAL SIGNS - Vital signs and nursing notes were reviewed. Stable and afebrile. GENERAL -51-year-old male appearing his stated age who is in no acute distress. Communicates well with provider and answers questions appropriately. SKIN - Without rashes. No meningeal or petechial rash. There is circumferential edema noted to the left thigh region with palpable flexion of the musculature throughout the anterior quadriceps region. There is a small bruise forming to the left medial distal thigh region. HEAD - NC/AT. EYES -no hyphema. LUNGS - Chest wall symmetric without accessory muscle use, intercostals retractions, or central cyanosis. Normal vesicular breath sounds CTA B/L. No wheezes, rales, or rhonchi appreciated. CARDIAC - RRR with S1/S2. No murmur, rubs, or gallops appreciated. ABDOMEN - Abdominal contour normal without pulsations or visible masses. BS normoactive all four quadrants. No tenderness, palpable masses, hepatosplenomegaly, or ascites noted. No guarding or rigidity. EXTREMITIES - No clubbing or peripheral cyanosis. Skin as above. Patient is diffusely tender throughout the left anterior quadriceps musculature extending to the posterior musculature of the thigh region. The left quadricep region is firm but not rigid or with evidence of compartment syndrome. Left calf is soft. Left dorsalis pedis pulse intact. Cap refill of the left foot digits within normal limits. No deficits. Decreased active flexion of the left knee and left hip secondary to pain. NEUROLOGIC - Cranial nerves II through XII grossly intact. PSYCH - A&O, and cooperates fully with examiner. Pt is very pleasant and interacts well with examiner. Course Administered Medications Acetaminophen (Acetaminophen 325 Mg Tab) 650 mg PO Q4H PRN PRN Reason: pain/fever Stop: 05/18/22 04:35 Last Admin: 04/18/22 09:02 Dose: 650 mg Documented by: [id number] Admin: 04/18/22 05:09 Dose: 650 mg Documented by: [id number] Azelastine HCl (Azelastine Hcl 0.1% Nasal 200 Sprays/27,400 Mcg Btl) 2 sprays NA BID CLARA Stop: 05/18/22 08:59 Last Admin: 04/18/22 09:00 Dose: 2 sprays Documented by: [id number] Morphine Sulfate (Morphine Sulfate 2 Mg/Ml Carp) 2 mg IV Q4 PRN PRN Reason: Pain - severe Stop: 05/02/22 09:02 Last Admin: 04/18/22 11:55 Dose: 2 mg Documented by: [id number] Discontinued Medications Ioversol (Optiray 320 100ml) 100 ml IV ONCE ONE Stop: 04/18/22 00:34 Last Admin: 04/18/22 00:33 Dose: 93 ml Documented by: [id number] Morphine Sulfate (Morphine Sulfate 4 Mg/Ml 1 Ml Carp\\Vial) 4 mg IV NOW STA Stop: 04/17/22 21:50 Last Admin: 04/17/22 22:37 Dose: 4 mg Documented by: [id number] Morphine Sulfate (Morphine Sulfate 4 Mg/Ml 1 Ml Carp\\Vial) 4 mg IV NOW STA Stop: 04/17/22 23:21 Last Admin: 04/17/22 23:45 Dose: 4 mg Documented by: [id number] Ondansetron HCl (Ondansetron Inj 2 Mg/Ml 2 Ml Vial) 4 mg IV NOW STA Stop: 04/17/22 21:50 Last Admin: 04/17/22 22:37 Dose: 4 mg Documented by: [id number] Medical Decision Making Laboratory Data Result diagrams: 04/18/22 06:30 04/18/22 06:30 Lab Results 04/17/22 04/17/22 04/17/22 Range/Units 21:33 21:33 21:33 WBC 13.60 H (4.8-10.8) K/uL RBC 4.25 L (4.7-6.1) M/uL Hgb 13.6 L (14.0-18.0) g/dL Hct 39.3 L (42-52) % MCV 92.5 (80-100) fL MCH 32.0 (25-34) pg MCHC 34.6 (32-36) g/dL RDW Std Deviation 45.8 (36.4-46.3) fL RDW Coeff of Ellyn 13.5 (11.5-14.5) % Plt Count 176 (130-400) K/uL MPV 9.9 (7.4-10.4) fL Immature Gran % (Auto) 0.1 % Neut % (Auto) 80.9 % Lymph % (Auto) 11.9 % Steele % (Auto) 6.8 % Eos % (Auto) 0.2 % Baso % (Auto) 0.1 % Neut # (Auto) 10.99 H (1.4-6.5) K/uL Lymph # (Auto) 1.62 (1.2-3.4) K/uL Steele # (Auto) 0.92 H (0.11-0.59) K/uL Eos # (Auto) 0.03 (0-0.5) K/uL Baso # (Auto) 0.02 (0-0.2) K/uL Immature Gran # (Auto) 0.02 (0.00-0.02) K/uL PT 30.3 H (9.0-12.0) Seconds INR 3.0 H (0.9-1.1) APTT 36.8 H (21.0-31.0) Seconds PTT Ratio 1.3 Sodium 135 L (136-145) mmol/L Potassium 4.2 (3.5-5.1) mmol/L Chloride 103 (98-107) mmol/L Carbon Dioxide 25 (21-32) mmol/L Anion Gap 7 (3-11) BUN 15 (6-23) mg/dl Creatinine 0.83 (0.6-1.4) mg/dl Est Cr Clr Drug Dosing 126.6 ml/min Est GFR ( Amer) 116.4 ml/min Est GFR (Non-Af Amer) 100.5 ml/min BUN/Creatinine Ratio 18.1 (10-20) Glucose 113 H (70-99(Fasting)) mg/dl Calcium 9.0 (8.5-10.1) mg/dl Total Bilirubin 0.5 (0.2-1.0) mg/dl AST 22 (13-39) U/L ALT 25 (7-52) U/L Alkaline Phosphatase 77 (34-104) U/L Total Creatine Kinase 276 H (30-223) U/L Total Protein 7.3 (6.0-8.3) gm/dl Albumin 4.3 (3.4-5.0) gm/dl Globulin 3.0 (2.5-4.0) gm/dl Albumin/Globulin Ratio 1.4 (0.9-2) Imaging Data Radiologist's Impression: Venous Doppler Study 04/17/22 21:49 LEFT LOWER EXTREMITY VENOUS DOPPLER HISTORY: Acute pain and swelling of the left lower extremity. History of nonocclusive thrombus within the left superficial femoral and popliteal veins. L leg pain, edema COMPARISON STUDY: 09/06/2019 FINDINGS: There is normal compressibility, flow, and augmentation within the left lower extremity deep venous system. Chronic nonocclusive thrombus/fibrin stranding within the superficial femoral vein. IMPRESSION: No acute DVT within the left lower extremity. ACT 112: Negative or not required by law. Electronically signed by: Bo Garnica M.D. 04/18/2022 6:[address] 04/17/22 23:11 CT femur LT w con HISTORY: 51 years-old Male L leg pain, anticoagulated, edema acute pain of the left thigh and knee without reported trauma COMPARISON: Left knee radiographs 07/28/2021 TECHNIQUE: Multiple axial CT images of the left femur were obtained following the intravenous ministration of 93 mL Optiray 320. A dose lowering technique was used consistent with the principals of ALARA. FINDINGS: There is a large acute intramuscular hematoma which predominantly involves the vastus intermedius measuring up to approximately 21 cm in length by approximately 4.2 x 5.7 cm. Total joint arthroplasty with patellar resurfacing. No acute fracture, dislocation or evidence of hardware complication. Marginal spurring of the patella. Screw tracts within the proximal tibial diaphysis. Mild to moderate left hip osteoarthritis without acute fracture, dislocation or avascular necrosis. Subcentimeter proximal femoral bone islands. Mild prostamegaly. No acute process of the imaged intrapelvic structures. There is no lymphadenopathy. IMPRESSION: 1. Large intramuscular hematoma predominantly involving the vastus intermedius measuring up to 21 cm in length. Clinical follow-up recommended to exclude the less likely possibility of an intramuscular lesion. 2. Unremarkable appearance of the total joint arthroplasty. 3. No acute fracture or dislocation. ACT 112: Negative or not required by law. The above report was generated using voice recognition software. It may contain grammatical, syntax or spelling errors. Electronically signed by: Bo Garnica M.D. 04/18/2022 8:[address] EXTREMITY LEFT LOWER: Thickening of the proximal quadriceps musculature which may represent underlying intramuscular hematoma. No acute osseous abnormality. Knee arthroplasty without hardware complication. Degenerative changes at the hip. Radiologist: Didier Barakat MD Study ready at 00:51 and initial results transmitted at 01:08 US VENOUS LEFT LOWER EXTREMITY: Synechia within the distal femoral vein on the left, sequela of chronic DVT. No acute DVT identified. Radiologist: Didier Barakat MD Study ready at 23:21 and initial results transmitted at 23:45 MDM Narrative Patient was seen and evaluated as above in room D03. Review was performed of nursing notes and vital signs. I did review pertinent previous visits and pat ient history. After obtaining a thorough history and physical examination the above work up was performed. Patient presents to us today for assessment of the left leg discomfort. He clinically appears well and nontoxic. No evidence of compartment syndrome clinically. Options of care were discussed with the patient. IV access was established. Labs were drawn. Mild leukocytosis 13.60. Mild anemia with hemoglobin of 13.6. INR 3.0. Mild hyponatremia 135. Glucose 113. Total CK276. Patient was medicated here with IV analgesics and antiemetic. Ultrasound was obtained with results as above. No acute DVT. CT of the left femur region obtained to evaluate for any potential active extravasation in the left leg/developing hematoma. Results as above. There is comment of thickening of the proximal quadriceps musculature which may represent underlying intramuscular hematoma. Formal radiology report will be available in the AM. Clinically upon each reassessment there continues to be a firmness to the left thigh region but again no evidence of compartment syndrome upon multiple reassessments. No progressive edema or firmness. Ambulatory trial was performed at bedside with the patient and he did have difficulty bearing weight to the left leg and noted discomfort. He also continues with discomfort with flexion of the left knee and hip region. I do not believe that reversing the patient's anticoagulation at this time is indicated noting his history of PE/DVT (it is felt that the risk of reversing anticoagulation at the present time outweights benefit) but also am concerned about sending him home at this hour of the day as the swelling may continue noting his anticoagulated state. I believe it would be best for him to be observed here overnight to trend the patient's left leg pain/swelling. I discussed options with the patient and at bedside. I do believe that further evaluation and management in the inpatient setting is warranted to observe him overnight for any further edema. He may need to have his anticoagulated state reversed if swelling would worsen/continue. Patient happy and in agreement with plan of care. Case discussed with the hospitalist woody avalos. It is important note that I do not believe that he requires surgical intervention at the present time. At no point did he exhibit any neurovascular compromise to the leg upon multiple reassessments. Case was discussed with the attending physician, Dr. Sawyer that also evaluated the patient. GCS: 15 In the evaluation and treatment of this patient the following differential diagnoses were entertained: Fracture, dislocation, subluxation, contusion, sprain, strain, intramuscular hematoma, active extravasation/hemorrhage, compartment syndrome, rhabdomyolysis, arterial occlusion, dissection, lumbar radiculopathy, intra-abdominal process causing vascular compromise/venous congestion, among others. Impression & Plan Acute pain of left lower extremity, Anticoagulated, Intramuscular hematoma Discharge Plan Visit Data Chief Complaint: Hip Pain Stated Complaint: LEFT HIP AND LEG PAIN ED Provider: Conor Sawyer ED Midlevel Provider: Jay Linares Discharge Problem: Acute pain of left lower extremity, Anticoagulated, Intramuscular hematoma Patient Disposition: Admitted As Inpatient Condition: Good Discharge Instructions Interventions: ED Discharge Assessment Last Done: 04/18/22 04:12
[2022-04-17 22:28] LABS: Basophils # (auto) 0.02 K/uL (0-0.2); Basophils % (auto) 0.1 %; Eosinophils # (auto) 0.03 K/uL (0-0.5); Eosinophils % (auto) 0.2 %; Hematocrit (blood only) 39.3 % (42-52); Hemoglobin 13.6 g/dL (14.0-18.0); Immature Granulocytes # (auto) 0.02 K/uL (0.00-0.02); Immature Granulocytes % (auto) 0.1 %; Lymphocytes # (auto) 1.62 K/uL (1.2-3.4); Lymphocytes % (auto) 11.9 %; Mean Corpuscular Hgb Conc 34.6 g/dL (32-36); Mean Corpuscular Volume 92.5 fL (80-100); Mean Platelet Volume 9.9 fL (7.4-10.4); Monocytes # (auto) 0.92 K/uL (0.11-0.59); Monocytes % (auto) 6.8 %; Neutrophils # (auto) 10.99 K/uL (1.4-6.5); Neutrophils % (auto) 80.9 %; Platelet Count 176 K/uL (130-400); RDW Coefficient of Variation 13.5 % (11.5-14.5); RDW Standard Deviation 45.8 fL (36.4-46.3); Red Blood Count 4.25 M/uL (4.7-6.1)
[2022-04-17 22:47] LABS: Partial Thromboplastin Ratio 1.3; Partial Thromboplastin Time 36.8 Seconds (21.0-31.0); Prothrombin Time 30.3 Seconds (9.0-12.0)
[2022-04-17 22:57] LABS: Albumin Globulin Ratio 1.4 (0.9-2); Albumin Level 4.3 gm/dl (3.4-5.0); BUN Creatinine Ratio 18.1 (10-20); Bilirubin,Total 0.5 mg/dl (0.2-1.0); Creatinine Clr Calc Pharmacy 126.6 ml/min; Est GFR (African American) 116.4 ml/min; Est GFR (Non-African American) 100.5 ml/min; Potassium 4.2 mmol/L (3.5-5.1); Total Protein 7.3 gm/dl (6.0-8.3)
[2022-04-18] MEDS ORDERED: OPTIRAY 320 100ml IV ONE (00:33)
--- NOTE | 2022-04-18 02:05 | History & Physical Report ---
Date of Service April 18, 2022 Assessment & Plan (1) Intramuscular hematoma: Plan: Intramuscular hematoma/acute pain left lower extremity- Holding warfarin overnight Last dose was on 04/16/2021 at 9 PM Monitor for signs of compartment syndrome Consult orthopedic surgery if symptoms progress overnight Repeat CT in a.m. 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 (4) Recurrent deep vein thrombosis (DVT): Plan: Venous Doppler suggestive of chronic DVT of left lower extremity If unable to resume warfarin, patient may need to be considered for IVC filter (5) Hyperlipidemia: Plan: Continue atorvastatin 10 mg in the evening (6) Obstructive sleep apnea syndrome: Plan: CPAP at bedtime as needed (7) Smokes 1/2 pack per day: Plan: Tobacco cessation counseling History of Present Illness Chief Complaint: The patient presents to the emergency department after feeling a pop sensation, and developing acute onset of left thigh pain and swelling that occurred as he was moving a metal beam around at work Primary Care Provider: Corine Moss MD The patient is a 51-year-old male with a past medical history including vitamin D deficiency, allergic rhinitis, recurrent DVT, hyperlipidemia, lumbar back pain, FABY, morbid obesity and tobacco use disorder. He presents with symptoms as noted above. Venous Doppler of left lower extremity showed chronic DVT. CT scan of left femur was concerning for a possible intramuscular hematoma. Of note, the patient was mildly supratherapeutic on Coumadin, with an INR of 3.0. Patient was referred to the hospital service for admission for monitoring for possible development of compartment syndrome Allergies Allergy/AdvReac Type Severity Reaction Status Date / Time cat dander Allergy Intermediate ITCHY Verified 04/17/22 23:40 EYES, SNEEZING, CONGESTION dog dander Allergy Intermediate ITCHY Verified 04/17/22 23:40 EYES, SNEEZING, CONGESTION pollen extracts Allergy Intermediate ITCHY Verified 04/17/22 23:40 EYES, SNEEZING, CONGESTION Home Medications Medication Instructions Recorded Confirmed Type atorvastatin 10 mg tablet 10 mg PO QPM #90 tab 09/07/20 04/17/22 Rx montelukast 10 mg tablet 10 mg PO QPM #90 tab 02/15/21 04/17/22 Rx (Singulair) azelastine 137 mcg (0.1 %) nasal 2 spray INTRANASAL BID #30 ml 07/10/21 04/17/22 Rx spray aerosol diclofenac sodium 1 % topical gel 2 g TOPICAL QID PRN 09/25/21 04/17/22 History CBD OTC Cream 1 applic TOPICAL BID PRN 03/02/22 04/17/22 History acetaminophen 500 mg tablet 1,000 mg PO DIRECTED PRN tab 03/02/22 04/17/22 History (Tylenol Extra Strength) warfarin 5 mg tablet See Rx Instructions .ROUTE .COMPLEX 04/17/22 04/17/22 History Past Med/Surg History Medical History Bilateral pulmonary embolism 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 Deep vein thrombosis (DVT) of left lower extremity Family history of DVT Hearing deficit History of kidney stones Hyperlipidemia Lumbar back pain Morbid obesity with BMI of 45.0-49.9, adult Nausea and vomiting after administration of anesthetic agent Obstructive sleep apnea syndrome cpap On anticoagulant therapy warfarin daily Recurrent deep vein thrombosis (DVT) left leg Skull fracture Smokes 1/2 pack per day Surgical History History of appendectomy History of arthroscopy of left knee x5 History of tooth extraction History of total knee arthroplasty History of total left knee replacement (TKR) Family History Mother Blood clot in vein Father Aortic aneurysm Myocardial infarction Family history of diabetes mellitus Blood clot in vein Other No family history of adverse response to anesthesia Denies family history of Ovarian cancer Prostate cancer Breast cancer Colorectal cancer Social History Smoking Status: Current every day smoker Tobacco Type: Smokeless Tobacco (Dip or Chew) Age Started Using Tobacco: 35; packs per day: 0.5; Cigarettes Per Day: 10 a day; Second Hand Exposure: Yes (parents smoked); Hx Alcohol Use: Yes Alcohol type: beer Hx Substance Use: No Preferred Language: Andorran Communication Ability: Effective Visual Impairment: Limited Hearing Ability: Normal [employer] Required: No Beliefs That Will Affect Care: None marital status: Current Living Situation: Spouse Current Living Situation Comment: Lives with . 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 Feels Safe at Home: Yes Childhood Exposure to Second-Hand Smoke: Yes Dental Care, Regularly: No Physical Activity Frequency: Does not Exercise Seatbelt Use: always Sunscreen Use: Yes Assistive Devices: None Review of Systems Review of Systems: The patient denies chest pain, palpitations, shortness of breath, dyspnea on exertion, cough, sore throat, fevers, chills, sweats, weight change, fatigue, nausea, vomiting, diarrhea , constipation, abdominal pain, pelvic pain, blood in urine or stool, dysuria, urinary frequency or urgency, lightheadedness, dizziness, headache, memory loss, loss of consciousness, rash, The review of systems is otherwise negative other than for that already noted above, and at least 10 systems have been reviewed. Physical Exam Physical Exam: The patient is awake, alert and oriented 3, well developed and well nourished, normocephalic and atraumatic, lying in bed and in no acute distress. HEENT--PERRL, EOMI, mucous membranes and oropharynx normal. Neck--supple. No JVD. No bruits. Thyroid normal, trachea midline, no adenopathy. Heart--normal S1 and S2. No murmurs, rubs or gallops. Lungs--clear bilaterally, no respiratory distress, no accessory muscle use. Abdomen--normal bowel sounds and soft. Nontender. Nondistended. Morbidly obese Extremities--no cyanosis or clubbing. Left thigh with pain and swelling there are good distal pulses b/l. Dermatologic--normal skin turgor, normal color, no abnormal lymph nodes, no rash. Neurologic--cranial nerves II through XII grossly intact. Rheumatologic--decreased range of motion left thigh due to pain Psychiatric--normal affect. Results & Data Results & Data ([facility]) Vital Signs (Past 12 Hours) Vital Signs Temp Pulse Pulse Resp BP BP Pulse Ox 04/17/22 23:51 68 18 113/63 94 04/17/22 22:38 85 18 131/76 98 04/17/22 20:47 36.6 C 84 18 151/78 H 97 Laboratory Results Laboratory Results WBC 13.60 K/uL (4.8-10.8) H 04/17/22 21:33 RBC 4.25 M/uL (4.7-6.1) L 04/17/22 21:33 Hgb 13.6 g/dL (14.0-18.0) L 04/17/22 21: Hct 39.3 % (42-52) L 04/17/22 21: MCV 92.5 fL (80-100) 04/17/22 21: MCH 32.0 pg (25-34) 04/17/22 21: MCHC 34.6 g/dL (32-36) 04/17/22 21: RDW Std Deviation 45.8 fL (36.4-46.3) 04/17/22 21: RDW Coeff of Ellyn 13.5 % (11.5-14.5) 04/17/22: Plt Count 176 K/uL (130-400) 04/17/22 21: MPV 9.9 fL (7.4-10.4) 04/17/22 21: Immature Gran % (Auto) 0.1 % 04/17/22 21: Neut % (Auto) 80.9 % 04/17/22 21: Lymph % (Auto) 11.9 % 04/17/22 21:33 [place] % (Auto) 6.8 % 04/17/22 21:33 Eos % (Auto) 0.2 % 04/17/22: Baso % (Auto) 0.1 % 04/17/22: Neut # (Auto) 10.99 K/uL (1.4-6.5) H 04/17/22 21: Lymph # (Auto) 1.62 K/uL (1.2-3.4) 04/17/22 21: [place] # (Auto) 0.92 K/uL (0.11-0.59) H 04/17/22 21:33 Eos # (Auto) 0.03 K/uL (0-0.5) 04/17/22 21: Baso # (Auto) 0.02 K/uL (0-0.2) 04/17/22: Immature Gran # (Auto) 0.02 K/uL (0.00-0.02) 04/17/22 21: PT 30.3 Seconds (9.0-12.0) H 04/17/22 21:33 INR 3.0 (0.9-1.1) H 04/17/22 21:33 APTT 36.8 Seconds (21.0-31.0) H 04/17/22 21: PTT Ratio 1.3 04/17/22 21:33 Sodium 135 mmol/L (136-145) L 04/17/22 21:33 Potassium 4.2 mmol/L (3.5-5.1) 04/17/22 21:33 Chloride 103 mmol/L (98-107) 04/17/22 21: Carbon Dioxide 25 mmol/L (21-32) 04/17/22 21:33 Anion Gap 7 (3-11) 04/17/22 21:33 BUN 15 mg/dl (6-23) 04/17/22: Creatinine 0.83 mg/dl (0.6-1.4) 04/17/22 21: Est Cr Clr Drug Dosing 126.6 ml/min 04/17/22 21:33 Est GFR ( Amer) 116.4 ml/min 04/17/22 21: Est GFR (Non-Af Amer) 100.5 ml/min 04/17/22 21:33 BUN/Creatinine Ratio 18.1 (10-20) 04/17/22 21: Glucose 113 mg/dl (70-99(Fasting)) H 04/17/22 21: Calcium 9.0 mg/dl (8.5-10.1) 04/17/22 21: Total Bilirubin 0.5 mg/dl (0.2-1.0) 04/17/22 21: AST 22 U/L (13-39) 04/17/22 21: ALT 25 U/L (7-52) 04/17/22 21:33 Alkaline Phosphatase 77 U/L (34-104) 04/17/22 21: Total Creatine Kinase 276 U/L (30-223) H 04/17/22 21:33 Total Protein 7.3 gm/dl (6.0-8.3) 04/17/22 21: Albumin 4.3 gm/dl (3.4-5.0) 04/17/22 21: Globulin 3.0 gm/dl (2.5-4.0) 04/17/22 21:33 Albumin/Globulin Ratio 1.4 (0.9-2) 04/17/22 21:33 Diagnostic Findings [facility] Patient: GENARO WALLACE (Male) : 66 Status: ER Date: 04/18/22 00:32 Room #: History: PAIN FROM HIP TO KNEE LEFT LEG, HAD KNEE REPLACEMENT DONE A FEW YEARS AGO PT STATES HE CAN HEAR AND FEEL THE REPLACEMENT MOVING AROUND Slices: 189 Priors: Tech: KariJohnny clark @ [phone] Exams: CT EXTREMITY LEFT LOWER Contrast: IV Amt: 93 ML OPTIRAY 320 Accession Numbers: [id number] Referring Physician: REFERRED SELF Preliminary Findings Only See Final Report For Complete Findings CT EXTREMITY LEFT LOWER: Thickening of the proximal quadriceps musculature which may represent underlying intramuscular hematoma. No acute osseous abnormality. Knee arthroplasty without hardware complication. Degenerative changes at the hip. Radiologist: Didier Barakat MD Study ready at 00:51 and initial results transmitted at 01:08 *This report constitutes a preliminary interpretation only. Non-acute findings felt to be unrelated to the clinical presentation may not be discussed in this report. The study will be interpreted and a final report will be generated by the local Radiologist the following shift. To reach the hospital radiology department call [phone]. If a discrepancy is found between the preliminary and final interpretations of this study, please notify us via our Client Portal at [email or web address], under QA Exams. You can also fax this report with a description of the discrepancy, or include the final report, to our daytime fax number [phone]. If faxing, please indicate the severity of discrepancy using one of the following categories: [ ] 1 - Agree/Informational [ ] 2 - Unlikely to Affect Management [ ] 3 - Possible Eventual Change of Management [ ] 4 - Probable Immediate Change of Management For all other patient related information, please fax us at [phone]. [id number] [facility] Patient: GENARO WALLACE (Male) : 66 Status: ER Date: 04/17/22 23:20 Room #: History: LEFT LEG PAIN Slices: 30 Priors: Tech: Camille Jackson @ [phone] Exams: US VENOUS LEFT LOWER EXTREMITY Contrast: Accession Numbers: [id number] Referring Physician: REFERRED SELF Preliminary Findings Only See Final Report For Complete Findings US VENOUS LEFT LOWER EXTREMITY: Synechia within the distal femoral vein on the left, sequela of chronic DVT. No acute DVT identified. Radiologist: Didier Barakat MD Study ready at 23:21 and initial results transmitted at 23:45 *This report constitutes a preliminary interpretation only. Non-acute findings felt to be unrelated to the clinical presentation may not be discussed in this report. The study will be interpreted and a final report will be generated by the local Radiologist the following shift. To reach the [facility] radiology department call [phone]. If a discrepancy is found between the preliminary and final interpretations of this study, please notify us via our Client Portal at [email or web address], under QA Exams. You can also fax this report with a description of the discrepancy, or include the final report, to our daytime fax number [phone]. If faxing, please indicate the severity of discrepancy using one of the following categories: [ ] 1 - Agree/Informational [ ] 2 - Unlikely to Affect Management [ ] 3 - Possible Eventual Change of Management [ ] 4 - Probable Immediate Change of Management For all other patient related information, please fax us at [phone]. [id number] Code Status & VTE Plan Code Status Full code VTE Prophylaxis Plan VTE Prophylaxis will be ordered: Yes PG Care Time/CCT Total # of Minutes Spent Total Time Spent with Patient: Total time spent is greater than 50% in coordination of care (as documented) at patient's floor/unit and/or counseling patient: Coding Level of Care Code INT OBSERVATION CARE 70M LVL 3 Diagnoses Acute pain of left lower extremity M79.605 Intramuscular hematoma T14.8XXA Current use of watermelon inspector anticoagulation Z79.01 Recurrent deep vein thrombosis (DVT) I82.409 Hyperlipidemia E78.5 Obstructive sleep apnea syndrome G47.33 Smokes 1/2 pack per day F17.210
[2022-04-18] MEDS ORDERED: ONDANSETRON INJ 2 MG/ML 2 ML VIAL IV PRN (04:36)
[2022-04-18] MEDS: ACETAMINOPHEN 325 MG TAB PO PRN ×2 (05:09→09:02)
--- NOTE | 2022-04-18 06:57 | Ultrasound Report ---
LEFT LOWER EXTREMITY VENOUS DOPPLER HISTORY: Acute pain and swelling of the left lower extremity. History of nonocclusive thrombus within the left superficial femoral and popliteal veins. L leg pain, edema COMPARISON STUDY: 09/06/2019 FINDINGS: There is normal compressibility, flow, and augmentation within the left lower extremity owen p venous system. Chronic nonocclusive thrombus/fibrin stranding within the superficial femoral vein. IMPRESSION: No acute DVT within the left lower extremity. ACT 112: Negative or not required by law. Electronically signed by: Bo Garnica M.D. 04/18/2022 6:55 AM
[2022-04-18 07:08] LABS: Basophils # (auto) 0.03 K/uL (0-0.2); Basophils % (auto) 0.3 %; Eosinophils # (auto) 0.15 K/uL (0-0.5); Eosinophils % (auto) 1.4 %; Hematocrit (blood only) 36.1 % (42-52); Hemoglobin 12.4 g/dL (14.0-18.0); Immature Granulocytes # (auto) 0.02 K/uL (0.00-0.02); Immature Granulocytes % (auto) 0.2 %; Lymphocytes # (auto) 2.36 K/uL (1.2-3.4); Lymphocytes % (auto) 21.8 %; Mean Corpuscular Hemoglobin 31.9 pg (25-34); Mean Corpuscular Hgb Conc 34.3 g/dL (32-36); Mean Corpuscular Volume 92.8 fL (80-100); Mean Platelet Volume 9.9 fL (7.4-10.4); Monocytes # (auto) 1.29 K/uL (0.11-0.59); Monocytes % (auto) 11.9 %; Neutrophils # (auto) 6.99 K/uL (1.4-6.5); Neutrophils % (auto) 64.4 %; Platelet Count 175 K/uL (130-400); RDW Coefficient of Variation 13.5 % (11.5-14.5); Red Blood Count 3.89 M/uL (4.7-6.1); White Blood Count 10.84 K/uL (4.8-10.8)
[2022-04-18 07:24] LABS: Albumin Level 3.7 gm/dl (3.4-5.0); BUN Creatinine Ratio 18.7 (10-20); Calcium 8.5 mg/dl (8.5-10.1); Creatinine Clr Calc Pharmacy 139.6 ml/min; Est GFR (African American) 121.4 ml/min; Est GFR (Non-African American) 104.7 ml/min; Phosphorus 3.9 mg/dl (2.5-4.9); Potassium 3.6 mmol/L (3.5-5.1)
[2022-04-18 07:25] LABS: INR 2.8 (0.9-1.1); Partial Thromboplastin Ratio 1.4; Partial Thromboplastin Time 37.4 Seconds (21.0-31.0)
--- NOTE | 2022-04-18 08:05 | CT Scan Report ---
CT femur LT w con HISTORY: 51 years-old Male L leg pain, anticoagulated, edema acute pain of the left thigh and knee w ithout reported trauma COMPARISON: Left knee radiographs 07/28/2021 TECHNIQUE: Multiple axial CT images of the left femur were obtained following the intravenous ministr ation of 93 mL Optiray 320. A dose lowering technique was used consistent with the principals of QUE [place] FINDINGS: There is a large acute intramuscular hematoma which predominantly involves the vastus intermedius sina suring up to approximately 21 cm in length by approximately 4.2 x 5.7 cm. Total joint arthroplasty wi th patellar resurfacing. No acute fracture, dislocation or evidence of hardware complication. Margina l spurring of the patella. Screw tracts within the proximal tibial diaphysis. Mild to moderate left h ip osteoarthritis without acute fracture, dislocation or avascular necrosis. Subcentimeter proximal f emoral bone islands. Mild prostamegaly. No acute process of the imaged intrapelvic structures. There is no lymphadenopathy . IMPRESSION: 1. Large intramuscular hematoma predominantly involving the vastus intermedius measuring up to 21 cm in length. Clinical follow-up recommended to exclude the less likely possibility of an intramuscular lesion. 2. Unremarkable appearance of the total joint arthroplasty. 3. No acute fracture or dislocation. ACT 112: Negative or not required by law. The above report was generated using voice recognition software. It may contain grammatical, syntax o r spelling errors. Electronically signed by: Bo Garnica M.D. 04/18/2022 8:03 AM
[2022-04-18] MEDS: AZELASTINE HCL 0.1% NASAL 200 SPRAYS/27,400 MCG BTL SCH ×2 (09:00→20:35)
[2022-04-18] MEDS: MoRPHine SULFATE 2 MG/ML CARP IV PRN ×3 (11:55→21:23)
--- NOTE | 2022-04-18 18:01 | Hospitalist Progress Note ---
Date of Service April 18, 2022 Assessment & Plan (1) Intramuscular hematoma: (2) Acute pain of left lower extremity: (3) Anticoagulated: (4) Current use of skilled nursing anticoagulation: (5) Recurrent deep vein thrombosis (DVT): (6) Hyperlipidemia: (7) Obstructive sleep apnea syndrome: Plan: Martin is a 51-year-old male with past medical history of vitamin D deficiency, allergic rhinitis, recurrent DVT (warfarin), hyperlipidemia, lumbar back pain, FABY, morbid obesity and tobacco use disorder presenting with left thigh pain. Acute pain of LLE/IM Hematoma: -Patient on chronic anticoagulation (warfarin) for past DVT/PE. -CT of left femur: Large IM hematoma located in the left vastus intermedius measuring 21 x 4.2 x 5.7 cm. -Holding warfarin in the setting of hematoma. -Hematoma will probably take a while to dissipate. -Pain control with Tylenol 650 mg as needed, morphine 2 mg as needed. -We will monitor for signs and symptoms of compartment syndrome. -If worsening condition obtain repeat CT scan and consult Ortho. Current use of long-term anticoagulation/Hx DVT & PE: -INR of 2.8 this morning. -Plan as above, currently holding warfarin. HLD: -Continue home atorvastatin 10mg daily. FABY: -CPAP HS PRN. DVT: Holding warfarin in the setting of hematoma. F/E/N/GI: Regular diet Code Status: Full Code Dispo: Med/Surg, discharge will rely on stability of hematoma, anticoagulation, pain control Admission and Anticipated Discharge Date Admission Date: April 18, 2022 Supervising Physician Co-Signing Physician Notes I personally examined the patient and verified all kim points of history and exam, discussed case, and agree with decision making with Dr Bernard Pain reasonably well controlled. Trying to keep it moving. Vitals noted, in general he is awake and alert pleasant no distress. HEENT normocephalic atraumatic mucous membranes moist. Breathing unlabored no accessory muscle use good effort. Skin shows no rashes no pallor or icterus, does have a small degree of bruising distal thigh, has a lot of tenseness and tenderness left thigh. Distal neurovascularly intact positive pulse. Left thigh hematoma with a degree (albeit mild) of acute blood loss anemiarelated to Coumadin. Holding Coumadin, appears to be overall stableno clear need to reverse at this time but will definitely hold. Discussed with his anticoagulation physician. Continue to follow CBC and examined tomorrow. PT/OT pain control. Hopefully home soon. Otherwise as above. Subjective Patient seen at bedside this morning with complaint of pain being the same as yesterday at the left thigh. Pain is not positional but may be more pronounced when on his side. Patient denies fevers, chills, nausea, vomiting. Review of Systems Constitutional: as per Subjective / HPI Physical Exam Constitutional: WD/WN, vitals as above Eyes: PERRL, conjunctivae normal, anicteric sclerae Respiratory: normal respiratory effort, lungs clear to auscultation Cardiovascular: RRR, no murmur, no edema Gastrointestinal (Abdomen): normal bowel sounds, soft, nontender, no hepatosplenomegaly Musculoskeletal: Tenderness to motion of left leg. Skin: Left thigh without evidence of ecchymosis, erythema, or swelling. Tender to palpation at left mid to anterolateral thigh. Psychiatric: A+Ox3, euthymic affect Results & Data Results & Data ([facility]) Vital Signs (Past 12 Hours) Vital Signs Temp Pulse Resp BP Pulse Ox 04/18/22 15:36 36.8 C 69 16 150/74 H 96 04/18/22 08:21 36.7 C 63 16 126/70 94 Resident Activity Tracking Resident Involvement: Resident Care Provided Care Provided: Adult [facility] Medicine
[2022-04-18] MEDS ORDERED: MONTELUKAST SODIUM 10 MG TABLET PO SCH (21:00)
[2022-04-18] MEDS ORDERED: ATORVASTATIN 10 MG TAB PO SCH (21:00)
[2022-04-19] MEDS: ACETAMINOPHEN 325 MG TAB PO PRN ×2 (01:18→06:16)
--- NOTE | 2022-04-19 06:57 | Hospitalist Progress Note ---
Date of Service April 19, 2022 Assessment & Plan (1) Intramuscular hematoma: (2) Acute pain of left lower extremity: (3) Anticoagulated: (4) Current use of fci anticoagulation: (5) Recurrent deep vein thrombosis (DVT): (6) Hyperlipidemia: (7) Obstructive sleep apnea syndrome: Plan: Martin is a 51-year-old male with past medical history of vitamin D deficiency, allergic rhinitis, recurrent DVT (warfarin), hyperlipidemia, lumbar back pain, FABY, morbid obesity and tobacco use disorder presenting with left thigh pain. Acute pain of LLE/IM Hematoma: -Patient on chronic anticoagulation (warfarin) for past DVT/PE. -CT of left femur: Large IM hematoma located in the left vastus intermedius measuring 21 x 4.2 x 5.7 cm. -Holding warfarin in the setting of hematoma. -Hematoma will probably take a while to dissipate. -Pain control with Tylenol 650 mg as needed, morphine 2 mg as needed. -We will monitor for signs and symptoms of compartment syndrome. -If worsening condition obtain repeat CT scan and consult Ortho. Current use of long-term anticoagulation/Hx DVT & PE: -INR of 2.8 this morning. -Plan as above, currently holding warfarin. HLD: -Continue home atorvastatin 10mg daily. FABY: -CPAP HS PRN. DVT: Holding warfarin in the setting of hematoma. F/E/N/GI: Regular diet Code Status: Full Code Dispo: Med/Surg, discharge will rely on stability of hematoma, anticoagulation, pain control Admission and Anticipated Discharge Date Admission Date: April 18, 2022 Review of Systems Constitutional: as per Subjective / HPI Physical Exam Constitutional: WD/WN, vitals as above Eyes: PERRL, conjunctivae normal, anicteric sclerae Respiratory: normal respiratory effort, lungs clear to auscultation Cardiovascular: RRR, no murmur, no edema Gastrointestinal (Abdomen): normal bowel sounds, soft, nontender, no hepatosplenomegaly Psychiatric: A+Ox3, euthymic affect Results & Data Results & Data ([facility]) Vital Signs (Past 12 Hours) Vital Signs Temp Pulse Resp BP Pulse Ox 04/18/22 22:36 36.9 C 67 18 151/74 H 94
[2022-04-19 07:24] LABS: Basophils # (auto) 0.03 K/uL (0-0.2); Basophils % (auto) 0.3 %; Eosinophils # (auto) 0.12 K/uL (0-0.50); Eosinophils % (auto) 1.3 %; Hematocrit (blood only) 34.3 % (40.1-51.0); Hemoglobin 12.2 g/dl (14.0-18.0); Immature Granulocytes # (auto) 0.04 K/uL (0.00-0.02); Immature Granulocytes % (auto) 0.4 %; Lymphocytes # (auto) 1.87 K/uL (1.2-3.4); Lymphocytes % (auto) 19.5 %; Mean Corpuscular Hemoglobin 33.2 pg (25.0-34.0); Mean Corpuscular Hgb Conc 35.6 g/dL (32.0-36.0); Mean Corpuscular Volume 93.5 fL (80.0-100.0); Monocytes # (auto) 1.14 K/uL (0.24-0.82); Monocytes % (auto) 11.9 %; Neutrophils % (auto) 66.6 %; Platelet Count 155 K/uL (130-400); RDW Coefficient of Variation 12.8 % (11.5-14.5); RDW Standard Deviation 43.7 fL (36.4-46.3); Red Blood Count 3.67 M/uL (4.63-6.08)
[2022-04-19 07:35] LABS: INR 1.7 (0.9-1.1); Partial Thromboplastin Ratio 1.2; Prothrombin Time 17.2 Seconds (9.0-12.0)
[2022-04-19 07:43] LABS: Albumin Level 3.8 gm/dl (3.4-5.0); BUN Creatinine Ratio 18.3 (10-20); Calcium 8.4 mg/dl (8.5-10.1); Creatinine Clr Calc Pharmacy 147.5 ml/min; Est GFR (African American) 124.2 ml/min; Est GFR (Non-African American) 107.1 ml/min; Phosphorus 2.6 mg/dl (2.5-4.9); Potassium 3.9 mmol/L (3.5-5.1)
[2022-04-19] MEDS: MoRPHine SULFATE 2 MG/ML CARP IV PRN ×2 (07:47→16:14)
[2022-04-19] MEDS: AZELASTINE HCL 0.1% NASAL 200 SPRAYS/27,400 MCG BTL SCH (11:29)
--- NOTE | 2022-04-19 13:54 | Discharge Summary ---
Date of Service April 19, 2022 Admission HPI Per Admitting Provider The patient is a 51-year-old male with a past medical history including vitamin D deficiency, allergic rhinitis, recurrent DVT, hyperlipidemia, lumbar back pain, FABY, morbid obesity and tobacco use disorder. He presents with symptoms as noted above. Venous Doppler of left lower extremity showed chronic DVT. CT scan of left femur was concerning for a possible intramuscular hematoma. Of note, the patient was mildly supratherapeutic on Coumadin, with an INR of 3.0. Patient was referred to the hospital service for admission for monitoring for possible development of compartment syndrome Admission Exam Per Admitting Provider The patient is awake, alert and oriented 3, well developed and well nourished, normocephalic and atraumatic, lying in bed and in no acute distress. HEENT--PERRL, EOMI, mucous membranes and oropharynx normal. Neck--supple. No JVD. No bruits. Thyroid normal, trachea midline, no adenopathy. Heart--normal S1 and S2. No murmurs, rubs or gallops. Lungs--clear bilaterally, no respiratory distress, no accessory muscle use. Abdomen--normal bowel sounds and soft. Nontender. Nondistended. Morbidly obese Extremities--no cyanosis or clubbing. Left thigh with pain and swelling there are good distal pulses b/l. Dermatologic--normal skin turgor, normal color, no abnormal lymph nodes, no rash. Neurologic--cranial nerves II through XII grossly intact. Rheumatologic--decreased range of motion left thigh due to pain Psychiatric--normal affect. Principal Diagnosis Intramuscular Hematoma L Vastus Intermedius Discharge Exam Constitutional WD/WN, vitals as above Eyes PERRL, conjunctivae normal, anicteric sclerae Respiratory normal respiratory effort, lungs clear to auscultation Cardiovascular RRR, no murmur, no edema Peripheral pulses 2+ bilateral lower extremities Gastrointestinal (Abdomen) normal bowel sounds, soft, nontender, no hepatosplenomegaly Musculoskeletal Ambulating with tenderness to anterior left thigh. Skin Mild ecchymosis at supra-patellar region. Neurologic Sensation in tact at bilateral lower extremities. Psychiatric A+Ox3, euthymic affect Discharge Data Allergies Allergy/AdvReac Type Severity Reaction Status Date / Time cat dander Allergy Intermediate ITCHY Verified 04/17/22 23:40 EYES, SNEEZING, CONGESTION dog dander Allergy Intermediate ITCHY Verified 04/17/22 23:40 EYES, SNEEZING, CONGESTION pollen extracts Allergy Intermediate ITCHY Verified 04/17/22 23:40 EYES, SNEEZING, CONGESTION Consultations 04/18/22 01:33 ED Decision to Admit Stat Ordered Studies 04/17/22 21:49 US venous doppler LE LT Urgent 04/17/22 23:11 CT femur LT w con Urgent Hospital Course (1) Intramuscular hematoma: (2) Acute pain of left lower extremity: (3) Anticoagulated: (4) Current use of snf anticoagulation: (5) Recurrent deep vein thrombosis (DVT): (6) Hyperlipidemia: (7) Obstructive sleep apnea syndrome: Martin is a 51-year-old male with past medical history of vitamin D deficiency, allergic rhinitis, recurrent DVT (warfarin), hyperlipidemia, lumbar back pain, FABY, morbid obesity and tobacco use disorder presenting with left thigh pain. Acute pain of LLE/IM Hematoma: -Patient on chronic anticoagulation (warfarin) for past DVT/PE. -CT of left femur: Large IM hematoma located in the left vastus intermedius measuring 21 x 4.2 x 5.7 cm. -Most likely from weak spot in tissue with heavy object weight bearing over left side and twisting motion. -Holding warfarin temporarily in the setting of hematoma. -Hematoma will probably take a while to dissipate. -Let patient know to alternate Tylenol and ibuprofen for pain control, prescribed 1 week oxycodone 5mg Q8h PRN supply for breakthrough pain. -Let patient know to monitor for signs and symptoms of numbness, tingling, decreased strength, discoloration of left foot. -Let patient know to get a CBC at follow up PCP visit to check for stable hemoglobin. Current use of long-term anticoagulation/Hx DVT & PE: -INR of 1.7 morning of discharge. -Plan as above, holding warfarin temporarily until next PCP visit. Total Time Total Time Spent Total Time Spent (In Minutes): <30 Discharge Plan Discharge Items Patient Disposition: Home - Self-Care Reason For Visit: INTRAMUSCULAR HEMATOMA ON WARFARIN Discharge Diagnosis: Intramuscular Hematoma. Condition on Discharge: Good Activity: Per Instructions section Non-emergency contact: Primary Care Provider Call non-emergency contact if: you have any medication questions, your pain is not controlled and your temperature is above 101 Follow-up/Referrals: Corine Moss MD [Primary Care Provider] - Diet: Regular Addtl Attending Provider Instructions: A discharge summary will be sent to your primary care physician to ensure continuity of care. You came to the hospital due to excruciating leg pain at your left leg. During your hospital stay you were found to have a collection of blood in your left thigh muscle known as the vastus intermedius. The collection of blood was seen on CT scan which took cross-sectional x-ray images through your leg. The size of your blood collection was [id number]. When it was discovered that you were having a collection of blood due to breakage of a vessel in your muscle your blood thinner was stopped. We will keep your blood thinner held until you decide on restarting the medication with your primary care doctor. Please take 2 extra strength Tylenol up to 3 times per day and alternate with ibuprofen up to 800mg 3 times per day. If you have any breakthrough pain that is not controlled by the Tylenol and ibuprofen we will prescribe you oxycodone to take. If you have any worsening of the leg pain far worse than when you left the hospital, increased numbness or tingling down the leg, your foot becoming black or blue, decreased strength or range of motion in your foot or toes please come back to the emergency department for further evaluation. Please remember to obtain an order for a Complete Blood Count to check hemoglobin levels from your primary care office. Checking hemoglobin levels are stable will ensure your bleed has stopped. Follow-up: * You should be seen by your primary physician within the next week. * You should ask your primary care physician for a Complete Blood Count to check on your hemoglobin level. Ideally this should be done early next week. Medications: Your medication list has been reviewed and reconciled upon discharge to ensure accuracy and continuity of care. An updated list of all your medications is included with your hospital discharge paperwork. Please review this list closely, and make note of any changes. * The instructions below will list you as still taking Warfarin, however Please do NOT take your warfarin until you talk with your primary care physician about restarting. * We will send a prescription medication for oxycodone 5mg to take as needed every 8 hours for breakthrough pain. Take your medications as instructed; do not skip a dose of your medicines. Make sure all of your doctors know every medicine you are taking (including hkem-foy-lkwvusk medicines, vitamins, and supplements). let your primary care provider know before taking any new medicines because some of these may interact with your current medications, or may make your symptoms worse. CONTACT YOUR PRIMARY CARE PROVIDER if you experience any of the following: * Fevers or shaking chills * Shortness of breath not relieved by inhalers, fainting * Sudden abdominal distension not relieved by catheterization. * Difficulty following your treatment plan, or difficulty taking medications CALL 911 OR GO TO THE EMERGENCY DEPARTMENT if you experience any of the following: * Sudden, severe abdominal pain or nausea/vomiting * Severe chest pain, or chest pain that radiates (moves) to your jaw or arm * Sudden, severe shortness of breath or difficulty breathing It was was our pleasure taking care of you here at [facility] . Thank you for allowing us to participate in your care. Pending Studies at Discharge: No Stand-Alone Forms: [facility] Work/School Release, Smoking Cessation Medications and DC Order Prescriptions: New oxycodone 5 mg tablet 5 mg PO Q8H PRN (Reason: pain) Qty: 10 RF: 0 Continued CBD OTC Cream 1 applic topical BID PRN (Reason: knee pain) RF: 0 atorvastatin 10 mg tablet 10 mg PO QPM Qty: 90 RF: 3 azelastine 137 mcg (0.1 %) aerosol,spray 2 spray intranasal BID Qty: 30 RF: 2 montelukast [Singulair] 10 mg tablet 10 mg PO QPM Qty: 90 RF: 3 acetaminophen [Tylenol Extra Strength] 500 mg tablet 1,000 mg PO DIRECTED PRN (Reason: Pain) RF: 0 diclofenac sodium 1 % Gel 2 g TOPICAL QID PRN (Reason: Pain) RF: 0 warfarin 5 mg tablet See Rx Instructions .ROUTE .COMPLEX RF: 0 Discharge Orders: Discharge Order (Routine); Ordered 04/19/22 Ordered By: Puma Bernard Admission Data Admit Date/Time: 04/18/22 02:04 Attending Provider: Alek Livingston Admit Provider: Antony Alva Primary Care Provider: Corine Moss Other Providers: Antony Alva Other Interventions: Discharge Summary Assessment (RN) Last Done: 04/19/22 17:08 Supervising Physician Co-Signing Physician Notes I personally examined the patient and verified all kim points of history and exam, discussed case, and agree with decision making with Dr Bernard Pain reasonably well controlled. feels up to going home Vitals noted, in general he is awake and alert pleasant no distress. HEENT normocephalic atraumatic mucous membranes moist. Breathing unlabored no accessory muscle use good effort. Skin shows no rashes no pallor or icterus, does have a small degree of bruising distal thigh slightly more than before, but L lateral thigh similar and slightly softer. Distal neurovascularly intact positive pulse. Left thigh hematoma with a degree (albeit mild) of acute blood loss anemiarelated to Coumadin. Holding Coumadin, appears to be overall stableno clear need to reverse at this time - stable for home. off coumadin. pain control (can use ibuprofen but strict limit to <1wk), PCP f/u and repeat CBC early next week - if all stable, then can consider resuming coumadin at that time. off work at least until PCP f/u as well Otherwise as above.
--- NOTE | 2022-04-19 19:13 | Billing Data ---
Date of Service April 19, 2022 Coding Level of Care Code 08272 OBS Care - Discharge
== END 2022-04-19 17:51 | disposition home or self-care (01) ==
LOC: 3W 20:37 → ED 20:37 → SUATTDRO 04-18 02:04 → 3W 04-18 04:12